=== PATIENT | female | born 1995 | race Caucasian/White ===

== ENCOUNTER 2023-03-23 09:31 | Emergency (ER) | payer OTHER, SELFPAY ==
--- NOTE | ~2023-03-23 | US_ITS ---
EXAMINATION: US ABDOMEN LIMITED CLINICAL INFORMATION: Abnormal LFTs. COMPARISON: Abdominal ultrasound 01/27/2016. TECHNIQUE: Real-time imaging of the right upper quadrant abdominal viscera. FINDINGS: PANCREAS: Obscured by overlying bowel gas. Visualized pancreatic head and body within normal limits. LIVER: Increased parenchymal echogenicity. No focal mass or intrahepatic biliary ductal dilatation. GALLBLADDER: Negative Lerma's sign. The gallbladder is physiologically distended without evidence of stones, sludge, polyps, wall thickening or pericholecystic fluid. COMMON BILE DUCT: Normal in caliber measuring 0.5 cm in diameter. RIGHT KIDNEY: No hydronephrosis. No renal calculi or focal parenchymal lesions. The kidney measures 9.6 cm in maximum dimension. FREE FLUID: None. US/US abdomen limited IMPRESSION: 1. Increased parenchymal echogenicity of the liver is nonspecific and could be seen in the setting of hepatic steatosis or hepatocellular disease. 2. Otherwise, normal examination.
[2023-03-23 09:49] VITALS: BP 121/89; PULSE 82; RESP 18; TEMP 37.1; O2SAT 98; BMI 28.6
[2023-03-23 10:17] LABS: MANUAL DIFF FLAG NO
[2023-03-23 10:21] LABS: Basophils Percent Auto 0.2 % (0-2); Eosinophils Absolute Auto 0.2 X10*3/uL (0.0-0.4); Eosinophils Percent Auto 2.2 % (0-4); Hematocrit 41.4 % (37.0-47.0); Hemoglobin 14.4 g/dl (12.0-16.0); Imm Gran Abs Auto 0.02 X10*3/uL (0.00-0.03); Imm Gran Pct Auto 0.2 % (0.0-0.4); Lymphocytes Absolute Auto 1.9 X10*3/uL (1.2-4.9); Lymphocytes Percent Auto 19.8 % (20-40); Mean Corpuscular HGB Conc 34.8 g/dl (31.0-35.0); Mean Corpuscular Hemoglobin 35.8 pg (27.0-33.0); Mean Platelet Volume 11.3 fL (9.4-12.3); Monocytes Absolute Auto 1.2 X10*3/uL (0.1-1.2); Monocytes Percent Auto 11.9 % (2-11); Neutrophils Absolute Auto 6.4 x10*3/uL (2.0-8.3); Neutrophils Percent Auto 65.7 % (45-73); Platelet Count 413 X10*3/uL (160-400); Red Blood Count 4.02 X10*6/uL (4.20-5.50); Red Cell Distribution Width 14.1 % (11.0-16.0); White Blood Count 9.7 X10*3/uL (4.8-10.8)
[2023-03-23 10:45] LABS: Alanine Aminotransferase 108 U/L (0-31); Albumin Level 3.4 g/dL (3.5-5.0); Alkaline Phosphatase 125 U/L (39-117); Anion Gap 13 (12-20); Aspartate Amino Transferase 128 U/L (5-31); Bilirubin Direct 1.2 mg/dL (0.0-0.5); Bilirubin Total 2.1 mg/dL (0.0-1.0); Blood Urea Nitrogen 8 mg/dL (9-16); Calcium 8.8 mg/dL (8.4-10.2); Carbon Dioxide 29 mmol/L (22-29); Chloride 102 mmol/L (96-108); Creatinine Clr Calc Pharmacy 109.8; Estimated Glomerular Filt Rate > 60; Glucose Random 84 mg/dL (60-115); Lipase 33 U/L (8-78); Potassium 3.6 mmol/L (3.3-5.1); Sodium 140 mmol/L (135-145); Total Protein 6.8 g/dL (6.5-8.0)
--- NOTE | 2023-03-23 11:05 | ED_ITS ---
HPI - General Adult General Chief complaint: General Medical Stated complaint: Bilateral leg/hand numbness Time Seen by Provider: 03/23/23 10:30 Source: patient Mode of arrival: ambulatory Limitations: no limitations History of Present Illness HPI narrative: 27 yo female with PMH of UC not on medications notes she doesn't drink much just a couple of times a week but drank a lot recently over the past couple of days about a week ago then vomited. She now has numbness, tingling in her legs like they are asleep and her toes are burning. This has never happened before. She smokes THC but no other street drugs. She denies diarrhea or fevers, no viral illness. It has stayed the same over a week. MD complaint: leg pain parasthesias Onset (ago): week(s) (1) Location: left, right and lower extremity Radiation: non-radiation Severity: moderate Quality: other (burning and tingling) Relieving factors: none Exacerbating factors: movement Associated symptoms: denies other symptoms Treatments prior to arrival: none Related Data Previous Rx's Medication Instructions Recorded folic acid 1 mg tablet 1 mg PO DAILY #30 tabs 03/23/23 magnesium oxide 400 mg PO DAILY #30 tabs 03/23/23 thiamine HCl (vitamin B1) 100 mg 100 mg PO DAILY #30 tabs 03/23/23 tablet Allergies Allergy/AdvReac Type Severity Reaction Status Date / Time aspirin [ASA] Allergy Unknown Verified 03/23/23 09:51 Review of Systems 2 Review of Systems: Constitutional : No Fever, No Chills, No Fatigue ENT/Mouth : No sore throat, No Rhinorrhea Eyes: No Eye Pain, No Swelling, No Redness Cardiovascular : No Chest Pain, No SOB, No Dyspnea on Exertion Respiratory : No Cough, No Sputum Gastrointestinal : No Nausea, No Vomiting, No Diarrhea, No abdominal Pain Genitourinary : No Dysuria, No Urinary Frequency, No Hematuria, Musculoskeletal : No joint pain, No Myalgias, No Joint Swelling Skin : No Skin Lesions, No rash Neuro : No Weakness, pos Numbness, No Dizziness, no Headache Psych : No Anxiety/Panic, No Depression Heme/Lymph: No Bruising, No Bleeding,No Lymphadenopathy Endocrine : No Polyuria, No Polydipsia All other systems reviewed and are negative PMFSH Past Medical History Attestation statement: The following information was validated with the patient. Medical History Ulcerative colitis Social History Social History (Updated 03/23/23 @ 11:43 by Winnie Marin DO) Alcohol intake: current Patient Tobacco Use Status: Current someday Tobacco user Substance Use Type: Marijuana Advance Directives: No Advance Directives Information Provided: No Physical Exam ED Vital Signs: Vital Signs - 24 hr 03/23/23 09:49 03/23/23 12:31 Temperature 98.7 F 97.4 F Pulse Rate 82 68 Respiratory Rate 18 Blood Pressure 121/89 131/89 Pulse Oximetry 98 100 Oxygen Delivery Method Room Air Room Air BMI result Body Mass Index 28.6 Appearance: Alert. Oriented X3. No acute distress. Eyes: Pupils equal, round and reactive to light. ENT: Pharynx normal. Neck: Normal inspection. Neck supple. CVS: Normal heart rate and rhythm. Pulses normal. Respiratory: No respiratory distress. Breath sounds normal. Abdomen: Soft and nontender. Skin: Skin warm and dry. Normal skin color. Normal skin turgor. Extremities: No lower extremity edema. No calf ttp Neuro: Oriented X 3. No motor deficit. No sensory deficit. no clonus, can feel hands on legs, babinski normal, 2+ DTR in patella and achilles bilaterally Medications Administered Discontinued Medications Generic Name Dose Route Start Last Admin Trade Name Freq PRN Reason Stop Dose Admin Thiamine HCl 200 mg/ Sodium 102 mls @ 204 mls/hr 03/23/23 11:03 03/23/23 12:21 Chloride IV 03/23/23 11:32 Infused ONCE ONE Infusion Sodium Chloride 1,000 mls @ 999 mls/hr 03/23/23 11:15 03/23/23 12:34 Ns IV 03/23/23 12:15 Infused .Q1H1M ERIKA Infusion Magnesium Sulfate 2 gm in 50 mls @ 25 mls/hr 03/23/23 11:03 03/23/23 14:02 Magnesium Sulfate/H2o IV 03/23/23 13:02 Infused ONCE ONE Infusion Medical Decision Making Medical Decision Making [facility] Narrative: 27 yo female with hx of ETOH use though based off her labs I do not think she is being very forthcoming her MCV and LFTs are high - she denies withdrawal symptoms. She now has neuropathy and burning pain, consistent tingling of the legs that has not increased or changed pulses are intact, DTRs are normal given no increase in symptoms and normal DTR - GBS unlikely I believe this is ETOH related and or lyte abnormality. At this time labs, US of liver, IV magnesium and thiamine ordered Differential Diagnosis Differential Diagnoses: The differential diagnosis associated with the presentation includes lyte abnormality, ETOH neuropathy Admission/Observation Consideration of admission/observation: Escalation of care including admission/observation considered can ambulate is moving legs freely in bed will DC on vitamins and follow up with PCP Lab Data MDM Lab Attestation statement: I reviewed the patient's lab results. 03/23/23 10:11 03/23/23 10:11 Labs: Lab Results 03/23/23 03/23/23 Range/Units 10:11 13:42 WBC 9.7 (4.8-10.8) X10*3/uL RBC 4.02 L (4.20-5.50) X10*6/uL Hgb 14.4 (12.0-16.0) g/dl Hct 41.4 (37.0-47.0) % MCV 103.0 H (80.0-98.0) fL MCH 35.8 H (27.0-33.0) pg MCHC 34.8 (31.0-35.0) g/dl RDW 14.1 (11.0-16.0) % Plt Count 413 H (160-400) X10*3/uL MPV 11.3 (9.4-12.3) fL Immature Gran % (Auto) 0.2 (0.0-0.4) % Neut % (Auto) 65.7 (45-73) % Lymph % (Auto) 19.8 L (20-40) % [place] % (Auto) 11.9 H (2-11) % Eos % (Auto) 2.2 (0-4) % Baso % (Auto) 0.2 (0-2) % Lymph # (Auto) 1.9 (1.2-4.9) X10*3/uL [place] # (Auto) 1.2 (0.1-1.2) X10*3/uL Eos # (Auto) 0.2 (0.0-0.4) X10*3/uL Baso # (Auto) 0.0 (0.0-0.2) X10*3/uL Abs Immat Gran (auto) 0.02 (0.00-0.03) X10*3/uL Absolute Neuts (auto) 6.4 (2.0-8.3) x10*3/uL Absolute Nucleated RBC 0.000 (0.0-0.012) X10*3/uL Nucleated RBC % (auto) 0.0 (0.0-0.2) /100WBC Sodium 140 (135-145) mmol/L Potassium 3.6 (3.3-5.1) mmol/L Chloride 102 (96-108) mmol/L Carbon Dioxide 29 (22-29) mmol/L Anion Gap 13 (12-20) BUN 8 L (9-16) mg/dL Creatinine 0.66 (0.5-1.4) mg/dL Estim Creat Clear Calc 109.8 Estimated GFR > 60 Random Glucose 84 (60-115) mg/dL Calcium 8.8 (8.4-10.2) mg/dL Magnesium 1.5 L (1.6-2.6) mg/dL Total Bilirubin 2.1 H (0.0-1.0) mg/dL Direct Bilirubin 1.2 H (0.0-0.5) mg/dL AST 128 H (5-31) U/L ALT 108 H (0-31) U/L Alkaline Phosphatase 125 H (39-117) U/L Total Protein 6.8 (6.5-8.0) g/dL Albumin 3.4 L (3.5-5.0) g/dL Lipase 33 (8-78) U/L Vitamin B12 952 H (200-900) pg/mL Folate < 2.2 L (> or = 4.0) ng/mL Ethyl Alcohol < 10 mg/dL Independent Interpretation I performed an independent interpretation of an: Ultrasound (no GB inflammation) Radiology Impression Discussion of test interpretation with radiology: I have reviewed the radiologist's reading. Prescription Management I considered prescription management with: Other Critical Care Time Critical Care Time Critical Care Time: Yes Total Critical Care Time: 40 Attestation: repletion of IV magnesium I attest to this time spent taking care of the patient Discharge Plan Discharge Clinical Impression: Alcohol abuse, Elevated liver enzymes, Hypomagnesemia, Neuropathy Patient Disposition: Home, Self-Care Instructions: Peripheral Neuropathy (ED), Hypomagnesemia (ED), Alcohol Use Disorder (ED) Additional Instructions: return for worsening symptoms, weakness, difficulty breathing or urinating or any other concerns. recheck liver enzymes with your doctor in 1 week. stop drinking. please take the vitamins prescribed to you Prescriptions: New folic acid 1 mg tablet 1 mg PO DAILY Qty: 30 1RF magnesium oxide 400 mg magnesium tablet 400 mg PO DAILY Qty: 30 1RF thiamine HCl (vitamin B1) 100 mg tablet 100 mg PO DAILY Qty: 30 1RF Stand Alone Forms: Work/School Release
[2023-03-23] MEDS: 0.9 % Sodium Chloride 1,000 ML 999 ML IV (11:26)
[2023-03-23] MEDS: Thiamine HCL 200 MG in 0.9 % Sodium Chloride 100 ML 204 MG IV (11:44)
[2023-03-23 11:56] LABS: Ethanol < 10 mg/dL; Magnesium 1.5 mg/dL (1.6-2.6)
--- NOTE | 2023-03-23 11:58 | PC.NURSE ---
20g iv inserted L upper arm. iv fluid and Thiamine started as documented. resting quietly, no apparent distress. will continue to observe.
[2023-03-23] MEDS: Magnesium Sulfate/H2O 2 GM/50 ML PIGGYBACK IV (12:21)
[2023-03-23 12:31] VITALS: BP 131/89; PULSE 68; TEMP 36.3; O2SAT 100
[2023-03-23 15:01] LABS: Folate < 2.2 ng/mL (> or = 4.0); Vitamin B12 952 pg/mL (200-900)
[2023-03-23] MEDS: Folic Acid 1 MG TABLET PO (15:29)
== END 2023-03-23 15:32 | disposition home or self-care (01) ==
PROVIDERS: Emergency Provider Emergency Medicine
DX: G62.9 Polyneuropathy, unspecified (principal); R20.0 Anesthesia of skin; F10.10 Alcohol abuse, uncomplicated; Y90.0 Blood alcohol level of less than 20 mg/100 ml; F12.10 Cannabis abuse, uncomplicated; R79.89 Other specified abnormal findings of blood chemistry; E83.42 Hypomagnesemia; M79.605 Pain in left leg; M79.604 Pain in right leg; Z79.899 Other long term (current) drug therapy
CPT/HCPCS: 36415; 76705; 80048; 80076; 80307; 82607; 82746; 83690; 83735; 85025; 96361; 96365; 96366; 96375; 99284; J3411; J3475

== ENCOUNTER 2023-03-25 13:30 | Outpatient (AMB) | payer OTHER, SELFPAY ==
[2023-03-25 13:36] VITALS: BP 122/78; PULSE 92; O2SAT 98
--- NOTE | 2023-03-25 13:36 | A.OFFVISCC_ITS ---
Intake Vital Signs 03/25/23 13:36 BP 122/78 Blood Pressure Location Lt radial Position Sitting Pulse 92 Pulse Source Pulse Oximeter Pulse Oximetry (%) 98 Oxygen Delivery Method Room Air Intake Visit Reasons: MAT Intake Intake Note: the patient is her efor a mat intake Allergies aspirin [ASA] Allergy (Verified 03/23/23 09:51) Unknown HPI MAT Intake HPI Details Patient presents for intake and evaluation of alcohol use Drinking daily 1-2 sleeves of vodka for about the past year Prior to that was binge drinking --started at age 17 Experiences withdrawal sx of anxiety, cloudy mind, tremors no history of seizures Episodes of vomiting Last drink 2 days ago Recently in our ED--neuropathy Denies any other substance use Denies any history of treatment Family history of substance use--mother, sister and several family members Medical History: -no PCP at this time -reports ulcerative colitis -engaged with GI via [facility] --colonoscopy coming up soon Social History: -lives with grandparents -not employed at this time--arrested las t week and lost her job at [id number] Goals: -stop drinking -focus on my life No relationship son 3 years old No medications at this time [facility] Medical History Ulcerative colitis Social History (Updated 03/23/23 @ 11:43 by Winnie Marin DO) Alcohol intake: current Patient Tobacco Use Status: Current someday Tobacco user Substance Use Type: Marijuana Review of Systems Const Reports as per HPI, Reports difficulty sleeping, Reports malaise and Reports poor appetite Physical Exam Vital Signs: Last Vital Signs Pulse 92 03/25/23 13:36 BP 122/78 03/25/23 13:36 Pulse Ox 98 03/25/23 13:36 Oxygen Delivery Method Room Air 03/25/23 13:36 Const General: cooperative, no acute distress and well groomed Assessment & Plan Assessment & Plan (1) Alcohol use disorder, severe, dependence: Code(s): F10.20 - Alcohol dependence, uncomplicated Plan: * discussed concern for withdrawal sx worsening given how long she has been drinking --agreeable to diazepam taper. * Reviewed dosing, goals and risks. Patient lives with grandparents and they are aware of plan * RN to check in daily * follow up in office Friday Medications: New diazepam 10 mg orally; Day one: 1 tab every 8 hours Day two: 1 tab every 8 hours Day three: 1 tab every 12 hours Day four: 1 tab at bedtime 10 tabs 0RF Coding Level of Care Code New Pt Level 4 (36216) Diagnoses Alcohol use disorder, severe, dependence F10.20
== END 2023-03-25 14:15 | disposition home or self-care (01) ==
PROVIDERS: Visit Provider Nurse Practitioner Psychiatric/Mental Health
DX: F10.20 Alcohol dependence, uncomplicated (principal)
CPT/HCPCS: 99204

== ENCOUNTER → 2023-03-25 13:30 | Outpatient (BNVA) | payer OTHER, SELFPAY | PROVIDERS: Visit Provider Nurse Practitioner Psychiatric/Mental Health | DX: F10.20 Alcohol dependence, uncomplicated (principal) | CPT/HCPCS: 99202 ==

== ENCOUNTER 2023-04-02 09:15 | Outpatient (AMB) | payer OTHER, SELFPAY ==
--- NOTE | 2023-04-02 09:16 | A.OFFVISCC_ITS ---
Intake Vital Signs 04/02/23 09:25 BP 110/70 Blood Pressure Location Lt radial Position Sitting Pulse 91 Pulse Source Pulse Oximeter Pulse Oximetry (%) 98 Oxygen Delivery Method Room Air Intake Visit Reasons: mat visit Intake Note: The patient presents for a mat visit Hospital Pharmacy Director Required: No Allergies aspirin [ASA] Allergy (Verified 04/02/23 09:26) Unknown HPI mat visit HPI Details Pt presents for AUD treatment and follow up She reports the diazepam taper was effective, and that she has not had an alcoholic beverage in 12 days She is experiencing burning and tingling to bilateral feet that she noticed began after she stopped alcohol use She is endorsing difficulty sleeping, and walking due to the pain She is reporting an increase in anxiety and irritability since she stopped drinking as well She is expressing interest in starting the vivitrol injection as she feels if she wants to drink she will not take the pills [facility] Medical History Ulcerative colitis Social History (Updated 03/23/23 @ 11:43 by Winnie Marin DO) Alcohol intake: current Patient Tobacco Use Status: Current someday Tobacco user Substance Use Type: Marijuana Review of Systems Const Reports as per HPI Musc Reports as per HPI and Reports tingling Neuro Reports burning sensations (bilateral feet) and Reports tingling Psych Reports anxiety and Reports irritability Physical Exam Vital Signs: Last Vital Signs Pulse 91 04/02/23 09:25 BP 110/70 04/02/23 09:25 Pulse Ox 98 04/02/23 09:25 Oxygen Delivery Method Room Air 04/02/23 09:25 Const General: cooperative and no acute distress Resp Effort & Inspection: normal respiratory effort Psych Appearance: grossly normal Mental Status: mental status grossly normal Speech and movement: Normal speech and movement present Affect: normal affect Attitude: cooperative Assessment & Plan Assessment & Plan (1) Alcohol use disorder, severe, dependence: Code(s): F10.20 - Alcohol dependence, uncomplicated Plan: -Increase gabapentin from 100mg bid to 300mg bid -Hydroxyzine for anxiety, med education provided -Naltrexone and vivitrol ordered, med education provided -Follow up 1 week Medications: New naltrexone microspheres ER (Vivitrol) 380 mg IM Q4W 1 ea 5RF gabapentin 300 mg PO BID 14 caps 0RF hydroxyzine HCl 25 mg PO BID PRN 14 tabs 0RF itching naltrexone Take 1/2 tab x 3 days, progress to full tab if tolerated well 50 mg PO DAILY 30 tabs 0RF Discontinued gabapentin Discontinued Reason: Patient Completed Course 100 mg PO BID 10 caps 0RF Coding Level of Care Code Est Pt Level 3 (09193) Diagnoses Alcohol use disorder, severe, dependence F10.20
[2023-04-02 09:25] VITALS: BP 110/70; PULSE 91; O2SAT 98
== END 2023-04-02 10:28 | disposition home or self-care (01) ==
PROVIDERS: Visit Provider Nurse Practitioner Family
DX: F10.20 Alcohol dependence, uncomplicated (principal)
CPT/HCPCS: 99213

== ENCOUNTER → 2023-04-02 09:15 | Outpatient (BNVA) | payer OTHER, SELFPAY | PROVIDERS: Visit Provider Nurse Practitioner Family | DX: F10.20 Alcohol dependence, uncomplicated (principal) | CPT/HCPCS: 99212 ==

== ENCOUNTER 2023-04-09 09:22 | Outpatient (REF) | payer OTHER, SELFPAY ==
[2023-04-09 10:15] LABS: MANUAL DIFF FLAG NO
[2023-04-09 10:32] LABS: Basophils Percent Auto 0.2 % (0-2); Eosinophils Absolute Auto 0.4 X10*3/uL (0.0-0.4); Eosinophils Percent Auto 2.7 % (0-4); Hematocrit 44.1 % (37.0-47.0); Hemoglobin 14.6 g/dl (12.0-16.0); Imm Gran Abs Auto 0.36 X10*3/uL (0.00-0.03); Imm Gran Pct Auto 2.3 % (0.0-0.4); Lymphocytes Absolute Auto 2.9 X10*3/uL (1.2-4.9); Lymphocytes Percent Auto 18.4 % (20-40); Mean Corpuscular HGB Conc 33.1 g/dl (31.0-35.0); Mean Corpuscular Hemoglobin 34.2 pg (27.0-33.0); Mean Corpuscular Volume 103.3 fL (80.0-98.0); Mean Platelet Volume 11.3 fL (9.4-12.3); Monocytes Absolute Auto 1.2 X10*3/uL (0.1-1.2); Monocytes Percent Auto 7.5 % (2-11); Neutrophils Absolute Auto 10.9 x10*3/uL (2.0-8.3); Neutrophils Percent Auto 68.9 % (45-73); Platelet Count 510 X10*3/uL (160-400); Red Blood Count 4.27 X10*6/uL (4.20-5.50); Red Cell Distribution Width 13.2 % (11.0-16.0); White Blood Count 15.8 X10*3/uL (4.8-10.8)
[2023-04-09 11:18] LABS: Alanine Aminotransferase 46 U/L (0-31); Alkaline Phosphatase 103 U/L (39-117); Anion Gap 10 (12-20); Aspartate Amino Transferase 35 U/L (5-31); Bilirubin Total 0.4 mg/dL (0.0-1.0); Blood Urea Nitrogen 11 mg/dL (9-16); Calcium 9.7 mg/dL (8.4-10.2); Carbon Dioxide 28 mmol/L (22-29); Chloride 108 mmol/L (96-108); Estimated Glomerular Filt Rate > 60; Glucose Random 82 mg/dL (60-115); Sodium 142 mmol/L (135-145); Total Protein 7.4 g/dL (6.5-8.0)
[2023-04-09 11:34] LABS: TSH reflex Free T4 1.35 uIU/mL (0.32-4.0)
[2023-04-09 11:39] LABS: Folate 8.4 ng/mL (> or = 4.0); Vitamin B12 486 pg/mL (200-900)
== END 2023-04-09 09:23 | disposition home or self-care (01) ==
LOC: HO.LAB 09:22
PROVIDERS: Visit Provider Nurse Practitioner Family
DX: F10.20 Alcohol dependence, uncomplicated (principal); G62.1 Alcoholic polyneuropathy; Z51.81 Encounter for therapeutic drug level monitoring; Z79.899 Other long term (current) drug therapy
CPT/HCPCS: 36415; 80053; 82607; 82746; 84443; 85025; 99212

== ENCOUNTER 2023-04-09 09:22 | Outpatient (AMB) | payer OTHER, SELFPAY ==
--- NOTE | 2023-04-09 09:25 | A.OFFVISCC_ITS ---
Intake Vital Signs 04/09/23 09:34 BP 126/76 Blood Pressure Location Lt radial Position Sitting Pulse 90 Pulse Source Pulse Oximeter Pulse Oximetry (%) 98 Oxygen Delivery Method Room Air Intake Visit Reasons: mat visit Intake Note: The patient presents for a mat visit Enlisted Advisor Required: No Allergies aspirin [ASA] Allergy (Verified 04/09/23 09:35) Unknown Do you need a note to return to daycare/school/sports/work: No HPI mat visit HPI Details Patient presents for MAT visit for AUD She reports having cravings daily, but tells herself that she does not want to go through the process of quitting again and that is what gets her through the craving T/w reminded her that these cravings are temporary and normal for early recovery. She continues to experience burning, tingling, and shocks to bilateral feet. She reports the gabapentin has been somewhat helpful She is experiencing difficulty sleeping due to the pain She has been trying various creams for pain relief, foot soaks, and 400mg ibuprofen daily. T/w advised her that for short term her ibuprofen can be taken 600mg qid or 800mg tid at maximum/day, and that 400mg / day is likely underdosing for the pain [facility] Medical History Ulcerative colitis Social History (Updated 03/23/23 @ 11:43 by Winnie Marin DO) Alcohol intake: current Patient Tobacco Use Status: Current someday Tobacco user Substance Use Type: Marijuana Review of Systems Const Reports as per HPI and Denies frequent falls Musc Denies numbness and Reports tingling Neuro Reports burning sensations, Denies frequent falls, Denies lack of coordination, Denies numbness, Denies restless legs, Reports tingling and Denies paresthesias Physical Exam Vital Signs: Last Vital Signs Pulse 90 04/09/23 09:34 BP 126/76 04/09/23 09:34 Pulse Ox 98 04/09/23 09:34 Oxygen Delivery Method Room Air 04/09/23 09:34 Const General: cooperative Resp Effort & Inspection: normal respiratory effort Skin General skin exam: no rashes or lesions noted Psych Appearance: grossly normal Mental Status: mental status grossly normal Speech and movement: Normal speech and movement present Affect: normal affect Attitude: cooperative Assessment & Plan Assessment & Plan (1) Alcohol use disorder, severe, dependence: Code(s): F10.20 - Alcohol dependence, uncomplicated Plan: -Started naltrexone 1 day ago -Has been abstinent x 20 days -Relapse prevention discussed -Follow up 1 week (2) Alcoholic peripheral neuropathy: Code(s): G62.1 - Alcoholic polyneuropathy Plan: -Pain continues to be a challenge for her- not meeting treatment goals -Gabapentin increased 300mg tid -Amitriptyline 25mg added for nighttime to address insomnia and neuropathy -Repaeat labwork, CBC, TSH, CMP, B12 & Folate, and TSH -Referral placed to pain management Orders: Orders Complete Blood Count Auto Diff Today F10.20 - Alcohol dependence, uncomplicated Vitamin B12 and Folate Today F10.20 - Alcohol dependence, uncomplicated Comprehensive Met. Panel Today F10.20 - Alcohol dependence, uncomplicated TSH reflex Free T4 Today F10.20 - Alcohol dependence, uncomplicated Vitamin B1 Today F10.20 - Alcohol dependence, uncomplicated Referrals Pain Management Referral G62.1 - Alcoholic polyneuropathy Medications: New gabapentin 300 mg PO TID 42 caps 0RF amitriptyline 25 mg PO BEDTIME 14 tabs 0RF Discontinued gabapentin Discontinued Reason: Patient Completed Course 300 mg PO BID 14 caps 0RF Coding Level of Care Code Est Pt Level 4 (91943) Diagnoses Alcohol use disorder, severe, dependence F10.20 Alcoholic peripheral neuropathy G62.1 Time Spent (min) 40 Comment Time spent with patient, reviewing chart, and documenting
[2023-04-09 09:34] VITALS: BP 126/76; PULSE 90; O2SAT 98
== END 2023-04-09 10:24 | disposition home or self-care (01) ==
PROVIDERS: Visit Provider Nurse Practitioner Family
DX: F10.20 Alcohol dependence, uncomplicated (principal); G62.1 Alcoholic polyneuropathy
CPT/HCPCS: 99214

== ENCOUNTER 2023-04-15 12:58 | Outpatient (AMB) | payer OTHER, SELFPAY ==
--- NOTE | 2023-04-15 12:59 | A.OFFVISCC_ITS ---
Intake Vital Signs 04/15/23 13:06 Height 5 ft 0.4 in Weight 144 lb 6 oz BMI 27.8 BP 118/82 Blood Pressure Location Lt radial Position Sitting Pulse 96 Pulse Source Pulse Oximeter Pulse Oximetry (%) 97 Oxygen Delivery Method Room Air Intake Visit Reasons: mat visit Intake Note: the patient presents for a mat visit Blade Grinder Required: No Allergies aspirin [ASA] Allergy (Verified 04/15/23 13:07) Unknown Do you need a note to return to daycare/school/sports/work: No HPI mat visit HPI Details Pt presents for MAT appointment Today is her first vivitrol injection She continues to abstain from alcohol She reports she is still having a burning sensation to bilateral feet, she feels the gabapentin has been minimally helpful and did not feel as though the amitriptyline was helpful [facility] Medical History Ulcerative colitis Social History (Updated 03/23/23 @ 11:43 by Winnie Marin DO) Alcohol intake: current Patient Tobacco Use Status: Current someday Tobacco user Substance Use Type: Marijuana Review of Systems Const Reports as per HPI Neuro Reports burning sensations Physical Exam Vital Signs: Last Vital Signs Pulse 96 04/15/23 13:06 BP 118/82 04/15/23 13:06 Pulse Ox 97 04/15/23 13:06 Oxygen Delivery Method Room Air 04/15/23 13:06 BMI result Body Mass Index 27.8 Office Meds Vivitrol 380 mg intramuscular suspension,extended release Performing Provider: Alejandra Richards NP Performing Location: [facility] Administered by: Kelly Powell RN on 04/15/23 13:48 Dose Route Admin Location Dispensed Lot Number Expiration Date [facility] [place] Billing Typist 380 mg IM RG 380 mg [id number] 06/23/25 [id number] [employer] Comments: Patient tolerated injection well with no stated or noted side effects, agrees to call [facility] for any comments, questions or concerns. Assessment & Plan Assessment & Plan (1) Alcohol use disorder, severe, dependence: Code(s): F10.20 - Alcohol dependence, uncomplicated Plan: -Tolerated injection -Provided her with med education -Follow up 1 week (2) Alcoholic peripheral neuropathy: Code(s): G62.1 - Alcoholic polyneuropathy Plan: -Increased amitriptyline from 25mg to 50mg nightly -Pain management referral has been placed- patient is waiting to here from them Orders: Orders AMB Naltrexone Injection Patient Supplied (NC) Today F10.20 - Alcohol dep endence, uncomplicated Medications: Changed From amitriptyline 25 mg PO BEDTIME 14 tabs 0RF To amitriptyline 50 mg (2 x 25 mg) PO BEDTIME 14 tabs 0RF Coding Level of Care Code Est Pt Level 3 (81071) Diagnoses Alcohol use disorder, severe, dependence F10.20 Alcoholic peripheral neuropathy G62.1
[2023-04-15 13:06] VITALS: BP 118/82; PULSE 96; O2SAT 97; BMI 27.8
== END 2023-04-15 14:57 | disposition home or self-care (01) ==
PROVIDERS: Visit Provider Nurse Practitioner Family
DX: F10.20 Alcohol dependence, uncomplicated (principal); G62.1 Alcoholic polyneuropathy
CPT/HCPCS: 99213

== ENCOUNTER → 2023-04-15 12:58 | Outpatient (BNVA) | payer OTHER, SELFPAY | PROVIDERS: Visit Provider Nurse Practitioner Family | DX: F10.20 Alcohol dependence, uncomplicated (principal); G62.1 Alcoholic polyneuropathy; Z79.899 Other long term (current) drug therapy | CPT/HCPCS: 96372; 99212; J2315 ==

== ENCOUNTER 2023-04-18 08:30 | Inpatient (IN) | payer OTHER, SELFPAY ==
[2023-04-18] VITALS (9 sets, daily range): BP systolic 119–135; BP diastolic 74–96; PULSE 102–150; RESP 15–21; TEMP 36.2–36.7; O2SAT 95–100; BMI 27.9
--- NOTE | 2023-04-18 | ECG_ITS ---
Test Reason : tachycardia Blood Pressure : / mmHG Vent. Rate : 129 BPM Atrial Rate : 129 BPM P-R Int : 066 ms QRS Dur : 074 ms QT Int : 396 ms P-R-T Axes : -21 040 076 degrees QTc Int : 580 ms Sinus tachycardia with short W[place] T wave abnormality, consider inferior ischemia T wave abnormality, consider anterolateral ischemia Abnormal ECG When compared with ECG of 18-APR-2023 08:43, W[place] interval has decreased T wave inversion now evident in Inferior leads Referred By: Alex Adam Electronically Signed By:NOE AC MD
--- NOTE | ~2023-04-18 | XR_ITS ---
EXAMINATION: XR CHEST CLINICAL INFORMATION: Tachycardia. Dyspnea. COMPARISON: 01/27/2016 TECHNIQUE: 2 views of the chest were obtained. FINDINGS: The lungs are well expanded. No focal consolidation. No pleural effusion. Cardiac silhouette is within normal limits. XR/XR chest 2V IMPRESSION: No acute abnormality.
--- NOTE | 2023-04-18 08:40 | ECG_ITS ---
Test Reason : CP Blood Pressure : / mmHG Vent. Rate : 142 BPM Atrial Rate : 142 BPM P-R Int : 128 ms QRS Dur : 074 ms QT Int : 352 ms P-R-T Axes : 067 062 037 degrees QTc Int : 541 ms Sinus tachycardia T wave abnormality, consider inferior ischemia T wave abnormality, consider anterolateral ischemia Abnormal ECG Referred By: Generic ED Physician Electronically Signed By:NOE AC MD
--- NOTE | 2023-04-18 08:55 | MHC.EDTECH ---
EKG was done on this patient dont know why its not crossing over but its been done.
--- NOTE | 2023-04-18 09:17 | ED.GENADULT ---
HPI - General Adult General Chief complaint: General Medical Stated complaint: Reaction to Shot 04/17/23 Time Seen by Provider: 04/18/23 09:17 History of Present Illness HPI narrative: The patient is a 27-year-old female with a history of alcohol use disorder. She has not had any alcohol for about 1 month. She is trying to stay off alcohol. Three days ago on Friday she received an injection of Vivitrol. This was the first time she has received this medication. The patient says that about 45 minutes after receiving the Vivitrol injection she started to feel unwell. She felt tired and anxious. Over the last 3 days these symptoms have worsened and include a sense of heart racing, shortness of breath, nausea, vomiting, and insomnia. No significant cough or sputum. No urinary symptoms. Related Data Home Medications Medication Instructions Recorded Confirmed acetaminophen 500 mg tablet 1,000 mg PO Q8H PRN Migraine 04/18/23 04/18/23 Headache hydroxyzine HCl 25 mg tablet 25 mg PO BID PRN itching/anxiety 04/18/23 04/18/23 Previous Rx's Medication Instructions Recorded folic acid 1 mg tablet 1 mg PO DAILY #30 tabs 03/23/23 magnesium oxide 400 mg PO DAILY #30 tabs 03/23/23 thiamine HCl (vitamin B1) 100 mg 100 mg PO DAILY #30 tabs 03/23/23 tablet naltrexone microspheres 380 mg 380 mg IM Q4W #1 ea 04/02/23 intramuscular suspension,extended release (Vivitrol) amitriptyline 25 mg tablet 50 mg (2 x 25 mg) PO BEDTIME #14 04/15/23 tabs Allergies Allergy/AdvReac Type Severity Reaction Status Date / Time aspirin [ASA] Allergy Unknown Verified 04/15/23 13:07 Review of Systems Review of Systems: Yes all other systems are reviewed and are negative PMFSH Past Medical History Medical History Ulcerative colitis Social History Social History Alcohol intake: current Patient Tobacco Use Status: Current someday Tobacco user Substance Use Type: Marijuana Advance Directives: No Advance Directives Information Provided: No Physical Exam ED Vital Signs: Vital Signs - 24 hr 04/18/23 08:35 04/18/23 11:28 04/18/23 13:14 Temperature 98 F 97.5 F 97.7 F Pulse Rate 150 H 129 H 126 H Respiratory Rate 19 20 20 Blood Pressure 126/96 H 134/95 H 130/89 Pulse Oximetry 98 100 98 Oxygen Delivery Method Room Air Room Air 04/18/23 14:45 Temperature 98.1 F Pulse Rate 136 H Respiratory Rate 18 Blood Pressure 127/84 Pulse Oximetry 98 Oxygen Delivery Method Room Air BMI result Body Mass Index 27.9 Const Other: The patient is a 27-year-old who looks somewhat older than her age. She was awake and alert. She seemed to have an anxious affect and looked mildly restless. HENMT Other: Face is symmetrical. Mucous membranes slightly dry. Eyes Other: Pupils round equal, extraocular movements intact, conjunctivae clear Neck Other: No lymphadenopathy. No neck swelling. No JVD. Resp Other: Lungs are clear bilaterally. Cardio Rate: tachycardic Rhythm: regular rhythm Heart sounds: S1 normal heart sound present and S2 normal heart sound present GI Other: Abdomen is soft and nontender Skin Other: Skin is pale and dry Neuro Other: The patient is awake and alert. She has an anxious demeanor. Cranial nerves are grossly intact. She moves her extremities normally. She does not have any obvious focal neurological deficit. Extrem Other: No peripheral edema. Medications Administered Generic Name Dose Route Start Last Admin Trade Name Freq PRN Reason Stop Dose Admin Dextrose/Sodium Chloride 1,000 mls @ 500 mls/hr 04/18/23 15:22 04/18/23 15:52 D5ns IVCONT 04/18/23 17:21 500 mls/hr .Q2H ONE Administration Discontinued Medications Generic Name Dose Route Start Last Admin Trade Name Freq PRN Reason Stop Dose Admin Al Hydroxide/Mg Hydroxide 60 ml 04/18/23 14:09 04/18/23 16:40 Magnesium Hydrox/Alum Hydrox 30 Ml Oral.Susp PO 04/18/23 14:10 60 ml ONCE ONE Administration Diazepam 5 mg 04/18/23 11:23 04/18/23 11:48 Diazepam 10 Mg/2 Ml Cartridge IVPUSH 04/18/23 11:24 5 mg STAT STA Administration Diazepam 10 mg 04/18/23 12:47 04/18/23 12:57 Diazepam 10 Mg/2 Ml Cartridge IM 04/18/23 12:48 10 mg STAT STA Administration Sodium Chloride 1,000 mls @ 999 mls/hr 04/18/23 09:30 04/18/23 15:02 Ns IV 04/18/23 10:30 Infused .Q1H1M ERIKA Infusion Sodium Chloride 1,000 mls @ 999 mls/hr 04/18/23 10:45 04/18/23 15:48 Ns IV 04/18/23 11:45 Not Given .Q1H1M ERIKA Promethazine HCl 12.5 mg/ 50.5 mls @ 202 mls/hr 04/18/23 10:45 04/18/23 15:02 Sodium Chloride IV 04/18/23 10:46 Infused ONCE ONE Infusion Medical Decision Making Medical Decision Making [facility] Narrative: The patient is a 27-year-old female with a history of alcoholism who states that she stopped drinking a few weeks ago. She has been seen a few times at [facility] and 3 days ago received 380 mg IM injection of naltrexone. The patient presents today with significant tachycardia a general sense of feeling unwell. She also reports nausea and vomiting and little oral intake over the last few days. She is tachycardic with a sinus tachycardia in the 140s. She has not hypotensive. She has not febrile. Her medical workup was significant for an anion gap acidosis. Her basic metabolic panel showed a bicarb of 11 with an anion gap of 30. She denies any alcohol use. She denies any other drug ingestions. Based on her tachycardia and her history of alcohol abuse and with her anion gap acidosis I believe that she seems to be behaving in a manner similar to a person with alcoholic ketoacidosis. For white blood count is very elevated but her CRP and procalcitonin are unremarkable. Her D-dimer is undetectable. Her urinalysis shows white cells but she has no urinary symptoms. There were also epithelial cells in her urinalysis. I do not think the patient is septic. I think she is dehydrated and in a starvation type state. She has a lot of ketones in her urine. The patient was given IV fluids. Her 1st IV was lost and it was difficult to establish a 2nd IV. She was also given diazepam for her anxiety. Ultimately after beta hydroxybutyrate came back positive I ordered D5 normal saline as her IV fluid. The patient has remained tachycardic. She has what I think is probably a relatively high blood pressure for her. She is quite small. Her diastolic blood pressures have been over 90. Ultimately I have also ordered a dose of phenobarbital as her presentation seems so suggestive of an alcohol cessation syndrome. The patient will be admitted to the hospitalist service for further care. Lab Data 04/18/23 09:16 04/18/23 13:39 Labs: Lab Results 04/18/23 04/18/23 04/18/23 Range/Units 09:16 09:52 09:54 WBC 28.1 H (4.8-10.8) X10*3/uL RBC 5.21 D (4.20-5.50) X10*6/uL Hgb 17.8 H D (12.0-16.0) g/dl Hct 52.2 H (37.0-47.0) % MCV 100.2 H (80.0-98.0) fL MCH 34.2 H (27.0-33.0) pg MCHC 34.1 (31.0-35.0) g/dl RDW 12.5 (11.0-16.0) % Plt Count 508 H (160-400) X10*3/uL MPV 11.6 (9.4-12.3) fL Immature Gran % (Auto) 1.6 H (0.0-0.4) % Neut % (Auto) 87.2 H (45-73) % Lymph % (Auto) 5.7 L (20-40) % [place] % (Auto) 5.1 (2-11) % Eos % (Auto) 0.2 (0-4) % Baso % (Auto) 0.2 (0-2) % Lymph # (Auto) 1.6 (1.2-4.9) X10*3/uL [place] # (Auto) 1.4 H (0.1-1.2) X10*3/uL Eos # (Auto) 0.1 (0.0-0.4) X10*3/uL Baso # (Auto) 0.1 (0.0-0.2) X10*3/uL Abs Immat Gran (auto) 0.44 H (0.00-0.03) X10*3/uL Absolute Neuts (auto) 24.5 H (2.0-8.3) x10*3/uL Absolute Nucleated RBC 0.000 (0.0-0.012) X10*3/uL Nucleated RBC % (auto) 0.0 (0.0-0.2) /100WBC Smear Tech's Comments VERIFIED D-Dimer High Sensitivty < 150 NG/ML VBG pH 7.34 (7.32-7.43) VBG pCO2 19 mmHg VBG pO2 45 mmHg VBG HCO3 10 L (22-26) mmol/L VBG O2 Saturation 79.0 % VBG Base Excess -11.9 mmol/L Sodium 139 (135-145) mmol/L Potassium 4.6 (3.3-5.1) mmol/L Chloride 103 (96-108) mmol/L Carbon Dioxide 11 L (22-29) mmol/L Anion Gap 30 H (12-20) BUN 10 (9-16) mg/dL Creatinine 0.83 (0.5-1.4) mg/dL Estim Creat Clear Calc 86.3 Estimated GFR > 60 Random Glucose 77 (60-115) mg/dL Osmolality (281-305) mosm/kg Calcium 11.2 H D (8.4-10.2) mg/dL Magnesium 2.0 (1.6-2.6) mg/dL Total Bilirubin 0.9 (0.0-1.0) mg/dL AST 24 (5-31) U/L ALT 26 (0-31) U/L Alkaline Phosphatase 125 H (39-117) U/L Total Creatine Kinase 31 (26-140) U/L Troponin I High Sens < 2.7 (<3.5-17.0) ng/L C-Reactive Protein 1.14 H (< or = 0.50) mg/dL B-Natriuretic Peptide < 10 (<100) pg/mL Total Protein 9.2 H (6.5-8.0) g/dL Albumin 5.0 (3.5-5.0) g/dL Lipase 25 (8-78) U/L Beta-Hydroxybutyrate (0.02-0.27) mmol/L Procalcitonin ng/mL Beta HCG, Quant < 2 mIU/mL Urine Color Urine Appearance Urine pH (5.0-9.0) Ur Specific [place] (1.005-1.025) Urine Protein (Neg-Trace) mg/dL Urine Glucose (UA) (Negative) mg/dL Urine Ketones (Negative) mg/dL Urine Blood (Negative) Urine Nitrite (Negative) Ur Leukocyte Esterase (Negative) Urine RBC (0-2) /HPF Urine WBC (0-5) /HPF Ur Squamous Epith Cells (0-2) /HPF Urine Bacteria (None Seen) Hyaline Casts (0-2) /LPF Salicylates (15-30) mg/dL Urine Opiates Screen (Not Detect) Urine Fentanyl Screen (Not Detect) Ur Barbiturates Screen (Not Detect) Ur Phencyclidine Scrn (Not Detect) Ur Amphetamines Screen (Not Detect) U Benzodiazepines Scrn (Not Detect) Urine Cocaine Screen (Not Detect) U Marijuana (THC) Screen (Not Detect) Ethyl Alcohol < 10 mg/dL Influenza Type A (PCR) (Negative) Influenza Type B (PCR) (Negative) RSV RNA Qual (PCR) (Negative) SARS-CoV-2 RNA (RT-PCR) (Negative) 04/18/23 04/18/23 04/18/23 Range/Units 09:55 13:39 14:54 WBC (4.8-10.8) X10*3/uL RBC (4.20-5.50) X10*6/uL Hgb (12.0-16.0) g/dl Hct (37.0-47.0) % MCV (80.0-98.0) fL MCH (27.0-33.0) pg MCHC (31.0-35.0) g/dl RDW (11.0-16.0) % Plt Count (160-400) X10*3/uL MPV (9.4-12.3) fL Immature Gran % (Auto) (0.0-0.4) % Neut % (Auto) (45-73) % Lymph % (Auto) (20-40) % [place] % (Auto) (2-11) % Eos % (Auto) (0-4) % Baso % (Auto) (0-2) % Lymph # (Auto) (1.2-4.9) X10*3/uL [place] # (Auto) (0.1-1.2) X10*3/uL Eos # (Auto) (0.0-0.4) X10*3/uL Baso # (Auto) (0.0-0.2) X10*3/uL Abs Immat Gran (auto) (0.00-0.03) X10*3/uL Absolute Neuts (auto) (2.0-8.3) x10*3/uL Absolute Nucleated RBC (0.0-0.012) X10*3/uL Nucleated RBC % (auto) (0.0-0.2) /100WBC Smear Tech's Comments D-Dimer High Sensitivty NG/ML VBG pH (7.32-7.43) VBG pCO2 mmHg VBG pO2 mmHg VBG HCO3 (22-26) mmol/L VBG O2 Saturation % VBG Base Excess mmol/L Sodium 138 (135-145) mmol/L Potassium 4.3 (3.3-5.1) mmol/L Chloride 106 (96-108) mmol/L Carbon Dioxide 10 L* (22-29) mmol/L Anion Gap 26 H (12-20) BUN 9 (9-16) mg/dL Creatinine 0.92 (0.5-1.4) mg/dL Estim Creat Clear Calc 77.9 Estimated GFR > 60 Random Glucose 79 (60-115) mg/dL Osmolality 302 (281-305) mosm/kg Calcium 10.8 H (8.4-10.2) mg/dL Magnesium (1.6-2.6) mg/dL Total Bilirubin (0.0-1.0) mg/dL AST (5-31) U/L ALT (0-31) U/L Alkaline Phosphatase (39-117) U/L Total Creatine Kinase (26-140) U/L Troponin I High Sens (<3.5-17.0) ng/L C-Reactive Protein (< or = 0.50) mg/dL B-Natriuretic Peptide (<100) pg/mL Total Protein (6.5-8.0) g/dL Albumin (3.5-5.0) g/dL Lipase (8-78) U/L Beta-Hydroxybutyrate 8.47 H (0.02-0.27) mmol/L Procalcitonin 0.03 ng/mL Beta HCG, Quant mIU/mL Urine Color Yellow Urine Appearance Cloudy Urine pH 5.5 (5.0-9.0) Ur Specific [place] 1.015 (1.005-1.025) Urine Protein 30 (1+) H (Neg-Trace) mg/dL Urine Glucose (UA) Negative (Negative) mg/dL Urine Ketones >=160 (Negative) mg/dL Urine Blood Negative (Negative) Urine Nitrite Negative (Negative) Ur Leukocyte Esterase Moderate (2+) H (Negative) Urine RBC 0-2 (0-2) /HPF Urine WBC 21-50 H (0-5) /HPF Ur Squamous Epith Cells 11-20 (0-2) /HPF Urine Bacteria 4+ (None Seen) Hyaline Casts 0-2 (0-2) /LPF Salicylates (15-30) mg/dL Urine Opiates Screen (Not Detect) Urine Fentanyl Screen (Not Detect) Ur Barbiturates Screen (Not Detect) Ur Phencyclidine Scrn (Not Detect) Ur Amphetamines Screen (Not Detect) U Benzodiazepines Scrn (Not Detect) Urine Cocaine Screen (Not Detect) U Marijuana (THC) Screen (Not Detect) Ethyl Alcohol mg/dL Influenza Type A (PCR) NEGATIVE (Negative) Influenza Type B (PCR) NEGATIVE (Negative) RSV RNA Qual (PCR) NEGATIVE (Negative) SARS-CoV-2 RNA (RT-PCR) NEGATIVE (Negative) 04/18/23 04/18/23 Range/Units 14:55 15:06 WBC (4.8-10.8) X10*3/uL RBC (4.20-5.50) X10*6/uL Hgb (12.0-16.0) g/dl Hct (37.0-47.0) % MCV (80.0-98.0) fL MCH (27.0-33.0) pg MCHC (31.0-35.0) g/dl RDW (11.0-16.0) % Plt Count (160-400) X10*3/uL MPV (9.4-12.3) fL Immature Gran % (Auto) (0.0-0.4) % Neut % (Auto) (45-73) % Lymph % (Auto) (20-40) % [place] % (Auto) (2-11) % Eos % (Auto) (0-4) % Baso % (Auto) (0-2) % Lymph # (Auto) (1.2-4.9) X10*3/uL [place] # (Auto) (0.1-1.2) X10*3/uL Eos # (Auto) (0.0-0.4) X10*3/uL Baso # (Auto) (0.0-0.2) X10*3/uL Abs Immat Gran (auto) (0.00-0.03) X10*3/uL Absolute Neuts (auto) (2.0-8.3) x10*3/uL Absolute Nucleated RBC (0.0-0.012) X10*3/uL Nucleated RBC % (auto) (0.0-0.2) /100WBC Smear Tech's Comments D-Dimer High Sensitivty NG/ML VBG pH (7.32-7.43) VBG pCO2 mmHg VBG pO2 mmHg VBG HCO3 (22-26) mmol/L VBG O2 Saturation % VBG Base Excess mmol/L Sodium (135-145) mmol/L Potassium (3.3-5.1) mmol/L Chloride (96-108) mmol/L Carbon Dioxide (22-29) mmol/L Anion Gap (12-20) BUN (9-16) mg/dL Creatinine (0.5-1.4) mg/dL Estim Creat Clear Calc Estimated GFR Random Glucose (60-115) mg/dL Osmolality (281-305) mosm/kg Calcium (8.4-10.2) mg/dL Magnesium (1.6-2.6) mg/dL Total Bilirubin (0.0-1.0) mg/dL AST (5-31) U/L ALT (0-31) U/L Alkaline Phosphatase (39-117) U/L Total Creatine Kinase (26-140) U/L Troponin I High Sens (<3.5-17.0) ng/L C-Reactive Protein (< or = 0.50) mg/dL B-Natriuretic Peptide (<100) pg/mL Total Protein (6.5-8.0) g/dL Albumin (3.5-5.0) g/dL Lipase (8-78) U/L Beta-Hydroxybutyrate (0.02-0.27) mmol/L Procalcitonin ng/mL Beta HCG, Quant mIU/mL Urine Color Urine Appearance Urine pH (5.0-9.0) Ur Specific [place] (1.005-1.025) Urine Protein (Neg-Trace) mg/dL Urine Glucose (UA) (Negative) mg/dL Urine Ketones (Negative) mg/dL Urine Blood (Negative) Urine Nitrite (Negative) Ur Leukocyte Esterase (Negative) Urine RBC (0-2) /HPF Urine WBC (0-5) /HPF Ur Squamous Epith Cells (0-2) /HPF Urine Bacteria (None Seen) Hyaline Casts (0-2) /LPF Salicylates < 5.0 L (15-30) mg/dL Urine Opiates Screen Not Detected (Not Detect) Urine Fentanyl Screen Not Detected (Not Detect) Ur Barbiturates Screen Not Detected (Not Detect) Ur Phencyclidine Scrn Not Detected (Not Detect) Ur Amphetamines Screen Not Detected (Not Detect) U Benzodiazepines Scrn POSITIVE H (Not Detect) Urine Cocaine Screen Not Detected (Not Detect) U Marijuana (THC) Screen Not Detected (Not Detect) Ethyl Alcohol mg/dL Influenza Type A (PCR) (Negative) Influenza Type B (PCR) (Negative) RSV RNA Qual (PCR) (Negative) SARS-CoV-2 RNA (RT-PCR) (Negative) Independent Interpretation I performed an independent interpretation of an: EKG Interpretation: EKG at 05/28/2007 shows sinus tachycardia at 142 beats per minute. There are diffuse T-wave changes. QTC 541. Critical Care Time Critical Care Time Critical Care Time: Yes Total Critical Care Time: 60 Attestation: The patient was critically ill with a high probability of imminent or life-threatening deterioration. ?I spent greater than 30 minutes of discontinuous time evaluating the patient, delivering critical care at the bedside, discussing evaluating data with consultants. ?Critical care time does not include time spent performing separately billable procedures or teaching. ?Time spent performing critical care with 60 minutes. Discharge Plan Discharge Clinical Impression: Alcoholic ketoacidosis, Tachycardia Patient Disposition: Admitted As Inpatient
[2023-04-18 09:27] LABS: Basophils Absolute Auto 0.1 X10*3/uL (0.0-0.2); Basophils Percent Auto 0.2 % (0-2); Eosinophils Absolute Auto 0.1 X10*3/uL (0.0-0.4); Eosinophils Percent Auto 0.2 % (0-4); Hematocrit 52.2 % (37.0-47.0); Imm Gran Abs Auto 0.44 X10*3/uL (0.00-0.03); Imm Gran Pct Auto 1.6 % (0.0-0.4); Lymphocytes Absolute Auto 1.6 X10*3/uL (1.2-4.9); Lymphocytes Percent Auto 5.7 % (20-40); MANUAL DIFF FLAG SCAN; Mean Corpuscular HGB Conc 34.1 g/dl (31.0-35.0); Mean Corpuscular Hemoglobin 34.2 pg (27.0-33.0); Mean Corpuscular Volume 100.2 fL (80.0-98.0); Mean Platelet Volume 11.6 fL (9.4-12.3); Monocytes Absolute Auto 1.4 X10*3/uL (0.1-1.2); Monocytes Percent Auto 5.1 % (2-11); Neutrophils Absolute Auto 24.5 x10*3/uL (2.0-8.3); Neutrophils Percent Auto 87.2 % (45-73); Platelet Count 508 X10*3/uL (160-400); Red Blood Count 5.21 X10*6/uL (4.20-5.50); Red Cell Distribution Width 12.5 % (11.0-16.0); SCAN SMEAR FLAG 1; White Blood Count 28.1 X10*3/uL (4.8-10.8)
[2023-04-18 09:28] LABS: Hemoglobin 17.8 g/dl (12.0-16.0)
[2023-04-18 09:47] LABS: SLIDE REVIEW VERIFIED
[2023-04-18 10:22] LABS: D Dimer High Sensitivity < 150 NG/ML
[2023-04-18 10:27] LABS: C Reactive Protein 1.14 mg/dL (< or = 0.50); Ethanol < 10 mg/dL; HCG Quantitative < 2 mIU/mL; Lipase 25 U/L (8-78)
[2023-04-18 10:28] LABS: Alanine Aminotransferase 26 U/L (0-31); Alkaline Phosphatase 125 U/L (39-117); Anion Gap 30 (12-20); Aspartate Amino Transferase 24 U/L (5-31); Bilirubin Total 0.9 mg/dL (0.0-1.0); Blood Urea Nitrogen 10 mg/dL (9-16); Calcium 11.2 mg/dL (8.4-10.2); Carbon Dioxide 11 mmol/L (22-29); Chloride 103 mmol/L (96-108); Creatinine Clr Calc Pharmacy 86.3; Estimated Glomerular Filt Rate > 60; Glucose Random 77 mg/dL (60-115); Potassium 4.6 mmol/L (3.3-5.1); Sodium 139 mmol/L (135-145); Total Protein 9.2 g/dL (6.5-8.0)
[2023-04-18 10:39] LABS: VBG Base Excess -11.9 mmol/L; VBG HCO3 10 mmol/L (22-26); VBG pCO2 19 mmHg; VBG pH 7.34 (7.32-7.43); VBG pO2 45 mmHg
[2023-04-18 10:42] LABS: Venous Blood Gas Refer to POC result
[2023-04-18] MEDS: 0.9 % Sodium Chloride 1,000 ML 999 ML IV ×2 (10:44→22:47)
[2023-04-18 10:53] LABS: Influenza A PCR NEGATIVE (Negative); Influenza B PCR NEGATIVE (Negative); Resp Syncy Virus RNA Qual PCR NEGATIVE (Negative); SARS COV2 PCR INHOUSE NEGATIVE (Negative)
[2023-04-18 11:16] LABS: B Type Natriuretic Peptide < 10 pg/mL (<100)
[2023-04-18 11:17] LABS: Troponin-I High Sensitivity < 2.7 ng/L (<3.5-17.0)
--- NOTE | 2023-04-18 11:17 | PC.NURSE ---
continues to cry in pain, stating that she cannot get comfortable in the bed d/t her leg pain. 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 provided with ice pack and pillow under her legs, continues to endorse pain. iv fluids infusing at this time.
[2023-04-18] MEDS: diazePAM 10 MG/2 ML CARTRIDGE 5 MG IVPUSH (11:48)
--- NOTE | 2023-04-18 12:28 | PC.NURSE ---
difficult IV stick, ultrasound at bedside attempting 2nd IV
[2023-04-18] MEDS: diazePAM 10 MG/2 ML CARTRIDGE IM (12:57)
[2023-04-18 14:04] LABS: Osmolality, Serum 302 mosm/kg (281-305)
[2023-04-18 14:12] LABS: Anion Gap 26 (12-20); Blood Urea Nitrogen 9 mg/dL (9-16); Calcium 10.8 mg/dL (8.4-10.2); Carbon Dioxide 10 mmol/L (22-29); Chloride 106 mmol/L (96-108); Creatinine Clr Calc Pharmacy 77.9; Estimated Glomerular Filt Rate > 60; Glucose Random 79 mg/dL (60-115); Potassium 4.3 mmol/L (3.3-5.1); Sodium 138 mmol/L (135-145)
[2023-04-18 14:25] LABS: Procalcitonin 0.03 ng/mL
--- NOTE | 2023-04-18 15:05 | PC.NURSE ---
able to gain IV access in patient's hand. received 1 liter of fluids, medicated per the MAR.
[2023-04-18 15:12] LABS: Beta-Hydroxybutyrate 8.47 mmol/L (0.02-0.27)
[2023-04-18 15:14] LABS: Appearance Urine Cloudy; Color Urine Yellow; Glucose Urine UA Negative (Negative); Leukocyte Esterase Urine Moderate (2+) (Negative); Nitrite Urine Negative (Negative); PH 5.5 (5.0-9.0); Specific Gravity - Urine 1.015 (1.005-1.025); UMIC TRIGGER UACC YES; Urine Blood Negative (Negative); Urine Ketones >=160 mg/dL (Negative); Urine Protein 30 (1+) mg/dL (Neg-Trace)
[2023-04-18 15:19] LABS: Bacteria Urine 4+ (None Seen); Hyaline Casts Urine 0-2 /LPF (0-2); RBC Urine 0-2 /HPF (0-2); UACC Culture Trigger YES; WBC Urine 21-50 /HPF (0-5)
[2023-04-18 15:27] LABS: Amphetamine Screen Urine Not Detected (Not Detect); Barbiturates, Urine Not Detected (Not Detect); Benzodiazepines Screen Urine POSITIVE (Not Detect); Cannabinoid Screen Urine Not Detected (Not Detect); Cocaine Screen Urine Not Detected (Not Detect); Fentanyl, urine Not Detected (Not Detect); Opiate Screen Urine Not Detected (Not Detect); Phencyclidine Screen Urine Not Detected (Not Detect)
[2023-04-18 15:31] LABS: Salicylate < 5.0 mg/dL (15-30)
--- NOTE | 2023-04-18 15:48 | P.HPHOSP_ITS ---
History of Present Illness Date of Service: 04/18/23 Chief Complaint: Nausea and vomiting A 27 years old lady with PMH of alcohol use disorder who presented to the hospital for nausea and vomiting three days after an injection of Vivitrol. It was her first time receiving the medications. soon after that she started feeling sick to her stomach and she started vomiting soon after that. could not tolerate any PO intake since then. No chest pain, palpitations, SOB, fever, chills, diarrhea or urinary symptoms. in ED she was found to have signs of dehydraion, ketoacidosis, anion-gap with mild Admitted for further evaluation and treatment. Review of Systems 2 Review of Systems: No fever, chills or weakness No chest pain, palpitation No shortness of breath or coughing No abdominal pain, but having nausea or vomiting No urinary symptoms No any rash or wounds PMFSH Medical History Ulcerative colitis Social History Household Members: Family Housing: House Do you presently have visiting nurse or other home services: No Alcohol intake: current Patient Tobacco Use Status: Never used Tobacco Use of substances other than those prescribed or required for medical reasons: Yes Substance Use Type: Marijuana Substance Use Frequency: Daily Last Used Substance: Days (ago) Currently Displaying Signs/Symptoms of Drug Intoxication Withdrawal: No Have you been hit, kicked, punched, or otherwise hurt by someone within the past year? If so, by whom?: No Do you feel safe in your current relationship?: Yes Is there a partner from a previous relationship who is making you feel unsafe now?: No Are you made to feel afraid or neglected: No Advance Directives: No Advance Directives Information Provided: No Do you have thoughts of harming others: None Do you have a plan to hurt others: No Plan Nutrition Risks: Acute nausea or vomiting x1 week Patient : No Meds Allergies Allergy/AdvReac Type Severity Reaction Status Date / Time aspirin [ASA] Allergy Unknown Verified 04/15/23 13:07 Active Medications: Current Medications Dextrose/Sodium Chloride (D5ns) 1,000 mls @ 500 mls/hr IVCONT .Q2H ONE Stop: 04/18/23 17:21 Home Medications Medication Instructions Recorded Confirmed Last Taken Type acetaminophen 500 mg tablet 1,000 mg PO Q8H PRN Migraine 04/18/23 04/18/23 04/17/23 History Headache hydroxyzine HCl 25 mg tablet 25 mg PO BID PRN itching/anxiety 04/18/23 04/18/23 Unknown History Physical Exam 2 Vital Signs and Narrative: Vital Signs: Last Vital Signs Temp 98.1 F 04/18/23 14:45 Pulse 136 H 04/18/23 14:45 Resp 18 04/18/23 14:45 BP 127/84 04/18/23 14:45 Pulse Ox 98 04/18/23 14:45 O2 Del Method Room Air 04/18/23 14:45 BMI result Body Mass Index 27.9 Const: Other: Constitutional : Awake, interactive, not in distress Neck : Normal inspection, Supple Cardiovascular : RRR, no JVP, no lower extremity edema Respiratory : good bilateral air entry, no crackles, wheezes or rhonchi Gastrointestinal: soft, lax, Normal bowel sounds, Non tender Skin : Warm, Dry Neurological : Alert & oriented x3, No focal deficit Results Labs 04/19/23 07:13 04/19/23 07:13 Labs: Laboratory Results - last 24 hr 04/18/23 04/18/23 04/18/23 09:16 09:52 09:54 MCV 100.2 H MCH 34.2 H MCHC 34.1 RDW 12.5 Plt Count 508 H MPV 11.6 Immature Gran % (Auto) 1.6 H Neut % (Auto) 87.2 H Lymph % (Auto) 5.7 L [place] % (Auto) 5.1 Eos % (Auto) 0.2 Baso % (Auto) 0.2 Lymph # (Auto) 1.6 [place] # (Auto) 1.4 H Eos # (Auto) 0.1 Baso # (Auto) 0.1 Abs Immat Gran (auto) 0.44 H Absolute Neuts (auto) 24.5 H Absolute Nucleated RBC 0.000 Nucleated RBC % (auto) 0.0 Smear Tech's Comments VERIFIED D-Dimer High Sensitivty < 150 VBG pH 7.34 VBG pCO2 19 VBG pO2 45 VBG HCO3 10 L VBG O2 Saturation 79.0 VBG Base Excess -11.9 Anion Gap 30 H Estim Creat Clear Calc 86.3 Estimated GFR > 60 Random Glucose 77 Osmolality Calcium 11.2 H D Magnesium 2.0 Total Bilirubin 0.9 AST 24 ALT 26 Alkaline Phosphatase 125 H Total Creatine Kinase 31 Troponin I High Sens < 2.7 C-Reactive Protein 1.14 H B-Natriuretic Peptide < 10 Total Protein 9.2 H Albumin 5.0 Lipase 25 Beta-Hydroxybutyrate Procalcitonin Beta HCG, Quant < 2 Urine Color Urine Appearance Urine pH Ur Specific [place] Urine Protein Urine Glucose (UA) Urine Ketones Urine Blood Urine Nitrite Ur Leukocyte Esterase Urine RBC Urine WBC Ur Squamous Epith Cells Urine Bacteria Hyaline Casts Salicylates Urine Opiates Screen Urine Fentanyl Screen Ur Barbiturates Screen Ur Phencyclidine Scrn Ur Amphetamines Screen U Benzodiazepines Scrn Urine Cocaine Screen U Marijuana (THC) Screen Ethyl Alcohol < 10 Influenza Type A (PCR) Influenza Type B (PCR) RSV RNA Qual (PCR) SARS-CoV-2 RNA (RT-PCR) 04/18/23 04/18/23 04/18/23 09:55 13:39 14:54 MCV MCH MCHC RDW Plt Count MPV Immature Gran % (Auto) Neut % (Auto) Lymph % (Auto) [place] % (Auto) Eos % (Auto) Baso % (Auto) Lymph # (Auto) [place] # (Auto) Eos # (Auto) Baso # (Auto) Abs Immat Gran (auto) Absolute Neuts (auto) Absolute Nucleated RBC Nucleated RBC % (auto) Smear Tech's Comments D-Dimer High Sensitivty VBG pH VBG pCO2 VBG pO2 VBG HCO3 VBG O2 Saturation VBG Base Excess Anion Gap 26 H Estim Creat Clear Calc 77.9 Estimated GFR > 60 Random Glucose 79 Osmolality 302 Calcium 10.8 H Magnesium Total Bilirubin AST ALT Alkaline Phosphatase Total Creatine Kinase Troponin I High Sens C-Reactive Protein B-Natriuretic Peptide Total Protein Albumin Lipase Beta-Hydroxybutyrate 8.47 H Procalcitonin 0.03 Beta HCG, Quant Urine Color Yellow Urine Appearance Cloudy Urine pH 5.5 Ur Specific [place] 1.015 Urine Protein 30 (1+) H Urine Glucose (UA) Negative Urine Ketones >=160 Urine Blood Negative Urine Nitrite Negative Ur Leukocyte Esterase Moderate (2+) H Urine RBC 0-2 Urine WBC 21-50 H Ur Squamous Epith Cells 11-20 Urine Bacteria 4+ Hyaline Casts 0-2 Salicylates Urine Opiates Screen Urine Fentanyl Screen Ur Barbiturates Screen Ur Phencyclidine Scrn Ur Amphetamines Screen U Benzodiazepines Scrn Urine Cocaine Screen U Marijuana (THC) Screen Ethyl Alcohol Influenza Type A (PCR) NEGATIVE Influenza Type B (PCR) NEGATIVE RSV RNA Qual (PCR) NEGATIVE SARS-CoV-2 RNA (RT-PCR) NEGATIVE 04/18/23 04/18/23 14:55 15:06 MCV MCH MCHC RDW Plt Count MPV Immature Gran % (Auto) Neut % (Auto) Lymph % (Auto) [place] % (Auto) Eos % (Auto) Baso % (Auto) Lymph # (Auto) [place] # (Auto) Eos # (Auto) Baso # (Auto) Abs Immat Gran (auto) Absolute Neuts (auto) Absolute Nucleated RBC Nucleated RBC % (auto) Smear Tech's Comments D-Dimer High Sensitivty VBG pH VBG pCO2 VBG pO2 VBG HCO3 VBG O2 Saturation VBG Base Excess Anion Gap Estim Creat Clear Calc Estimated GFR Random Glucose Osmolality Calcium Magnesium Total Bilirubin AST ALT Alkaline Phosphatase Total Creatine Kinase Troponin I High Sens C-Reactive Protein B-Natriuretic Peptide Total Protein Albumin Lipase Beta-Hydroxybutyrate Procalcitonin Beta HCG, Quant Urine Color Urine Appearance Urine pH Ur Specific [place] Urine Protein Urine Glucose (UA) Urine Ketones Urine Blood Urine Nitrite Ur Leukocyte Esterase Urine RBC Urine WBC Ur Squamous Epith Cells Urine Bacteria Hyaline Casts Salicylates < 5.0 L Urine Opiates Screen Not Detected Urine Fentanyl Screen Not Detected Ur Barbiturates Screen Not Detected Ur Phencyclidine Scrn Not Detected Ur Amphetamines Screen Not Detected U Benzodiazepines Scrn POSITIVE H Urine Cocaine Screen Not Detected U Marijuana (THC) Screen Not Detected Ethyl Alcohol Influenza Type A (PCR) Influenza Type B (PCR) RSV RNA Qual (PCR) SARS-CoV-2 RNA (RT-PCR) Imaging Radiologist's Impressions: Impressions Chest X-Ray 04/18/23 09:35 IMPRESSION: No acute abnormality. Assessment and Plan (1) High anion gap metabolic acidosis: Status: Acute (2) Intractable nausea and vomiting: Status: Acute (3) Hypercalcemia: Status: Acute Plan A 27 years old lady with PMH of alcohol use disorder who presented to the hospital for nausea and vomiting three days after an injection of Vivitrol. AGMA 2/2 Intractable nausea and vomiting to give IV boluses and maintenance consider sodium bicarb Hypercalcemia likely pseudo with abnormal albumin level Hx UC not in exacerbation monitor DVT PPx Lovenox The patient will likely need 2 overnight hospital stay for treatment of AGMA pending improvement in blood work and tolerance to diet. Quality Stroke Does the patient have a stroke diagnosis?: No VTE Prior VTE?: No VTE Risk Level:: Medical - low VTE Device Contraindication: Treatment Not Indicated VTE Drug Contraindication: N/A - Med Ordered
[2023-04-18] MEDS: Dextrose 5 % and 0.9 % NaCl 1,000 ML 500 ML IVCONT (15:52)
--- NOTE | 2023-04-18 16:06 | PHA.MEDREC ---
Pharmacy Consult ? Medication Reconciliation Pharmacy has completed the medication reconciliation. patient reported no longer taking gabapentin or naltrexone. Patient stated she got her vivtrol injection on friday. Tomeka Tao, EwaD
--- NOTE | 2023-04-18 16:14 | P.HPHOSP_ITS ---
[facility] Medical History Ulcerative colitis Social History (Updated 03/23/23 @ 11:43 by Winnie Marin DO) Alcohol intake: current Patient Tobacco Use Status: Current someday Tobacco user Substance Use Type: Marijuana Advance Directives: No Advance Directives Information Provided: No Meds Allergies Allergy/AdvReac Type Severity Reaction Status Date / Time aspirin [ASA] Allergy Unknown Verified 04/15/23 13:07 Active Medications: Current Medications Acetaminophen (Acetaminophen 325 Mg Tablet) 650 mg PO Q6H PRN PRN Reason: Pain, Mild (Pain Scale 1-3) Enoxaparin Sodium (Enoxaparin Sodium 40 Mg/0.4 Ml Syringe) 40 mg SUBCUT Q24H [facility] Dextrose/Sodium Chloride (D5ns) 1,000 mls @ 500 mls/hr IVCONT .Q2H ONE Stop: 04/18/23 17:21 Last Admin: 04/18/23 15:52 Dose: 500 mls/hr Dextrose/Sodium Chloride (D5ns) 1,000 mls @ 100 mls/hr IVCONT .Q10H [facility] Promethazine HCl 6.25 mg/ (Sodium Chloride) 50.25 mls @ 201 mls/hr IV ONCE ONE Stop: 04/18/23 16:10 Sodium Chloride (Ns) 1,000 mls @ 999 mls/hr IV .Q1H1M [facility] Stop: 04/18/23 17:15 Ondansetron HCl (Ondansetron Hcl 4 Mg/2 Ml Vial) 4 mg IVPUSH Q8H PRN PRN Reason: Nausea and Vomiting Sodium Chloride (0.9 % Sodium Chloride Flush 3 Ml Syringe) 3 ml IVFLUSH QSHIFT [facility] Home Medications Medication Instructions Recorded Confirmed Last Taken Type acetaminophen 500 mg tablet 1,000 mg PO Q8H PRN Migraine 04/18/23 04/18/23 04/17/23 History Headache hydroxyzine HCl 25 mg tablet 25 mg PO BID PRN itching/anxiety 04/18/23 04/18/23 Unknown History Physical Exam 2 Vital Signs and Narrative: Vital Signs: Last Vital Signs Temp 98.1 F 04/18/23 14:45 Pulse 136 H 04/18/23 14:45 Resp 18 04/18/23 14:45 BP 127/84 04/18/23 14:45 Pulse Ox 98 04/18/23 14:45 O2 Del Method Room Air 04/18/23 14:45 BMI result Body Mass Index 27.9 Results Labs 04/18/23 09:16 04/18/23 13:39 Labs: Laboratory Results - last 24 hr 04/18/23 04/18/23 04/18/23 09:16 09:52 09:54 MCV 100.2 H MCH 34.2 H MCHC 34.1 RDW 12.5 Plt Count 508 H MPV 11.6 Immature Gran % (Auto) 1.6 H Neut % (Auto) 87.2 H Lymph % (Auto) 5.7 L [place] % (Auto) 5.1 Eos % (Auto) 0.2 Baso % (Auto) 0.2 Lymph # (Auto) 1.6 [place] # (Auto) 1.4 H Eos # (Auto) 0.1 Baso # (Auto) 0.1 Abs Immat Gran (auto) 0.44 H Absolute Neuts (auto) 24.5 H Absolute Nucleated RBC 0.000 Nucleated RBC % (auto) 0.0 Smear Tech's Comments VERIFIED D-Dimer High Sensitivty < 150 VBG pH 7.34 VBG pCO2 19 VBG pO2 45 VBG HCO3 10 L VBG O2 Saturation 79.0 VBG Base Excess -11.9 Anion Gap 30 H Estim Creat Clear Calc 86.3 Estimated GFR > 60 Random Glucose 77 Osmolality Calcium 11.2 H D Magnesium 2.0 Total Bilirubin 0.9 AST 24 ALT 26 Alkaline Phosphatase 125 H Total Creatine Kinase 31 Troponin I High Sens < 2.7 C-Reactive Protein 1.14 H B-Natriuretic Peptide < 10 Total Protein 9.2 H Albumin 5.0 Lipase 25 Beta-Hydroxybutyrate Procalcitonin Beta HCG, Quant < 2 Urine Color Urine Appearance Urine pH Ur Specific [place] Urine Protein Urine Glucose (UA) Urine Ketones Urine Blood Urine Nitrite Ur Leukocyte Esterase Urine RBC Urine WBC Ur Squamous Epith Cells Urine Bacteria Hyaline Casts Salicylates Urine Opiates Screen Urine Fentanyl Screen Ur Barbiturates Screen Ur Phencyclidine Scrn Ur Amphetamines Screen U Benzodiazepines Scrn Urine Cocaine Screen U Marijuana (THC) Screen Ethyl Alcohol < 10 Influenza Type A (PCR) Influenza Type B (PCR) RSV RNA Qual (PCR) SARS-CoV-2 RNA (RT-PCR) 04/18/23 04/18/2324 09:55 13:39 14:54 MCV MCH MCHC RDW Plt Count MPV Immature Gran % (Auto) Neut % (Auto) Lymph % (Auto) [place] % (Auto) Eos % (Auto) Baso % (Auto) Lymph # (Auto) [place] # (Auto) Eos # (Auto) Baso # (Auto) Abs Immat Gran (auto) Absolute Neuts (auto) Absolute Nucleated RBC Nucleated RBC % (auto) Smear Tech's Comments D-Dimer High Sensitivty VBG pH VBG pCO2 VBG pO2 VBG HCO3 VBG O2 Saturation VBG Base Excess Anion Gap 26 H Estim Creat Clear Calc 77.9 Estimated GFR > 60 Random Glucose 79 Osmolality 302 Calcium 10.8 H Magnesium Total Bilirubin AST ALT Alkaline Phosphatase Total Creatine Kinase Troponin I High Sens C-Reactive Protein B-Natriuretic Peptide Total Protein Albumin Lipase Beta-Hydroxybutyrate 8.47 H Procalcitonin 0.03 Beta HCG, Quant Urine Color Yellow Urine Appearance Cloudy Urine pH 5.5 Ur Specific [place] 1.015 Urine Protein 30 (1+) H Urine Glucose (UA) Negative Urine Ketones >=160 Urine Blood Negative Urine Nitrite Negative Ur Leukocyte Esterase Moderate (2+) H Urine RBC 0-2 Urine WBC 21-50 H Ur Squamous Epith Cells 11-20 Urine Bacteria 4+ Hyaline Casts 0-2 Salicylates Urine Opiates Screen Urine Fentanyl Screen Ur Barbiturates Screen Ur Phencyclidine Scrn Ur Amphetamines Screen U Benzodiazepines Scrn Urine Cocaine Screen U Marijuana (THC) Screen Ethyl Alcohol Influenza Type A (PCR) NEGATIVE Influenza Type B (PCR) NEGATIVE RSV RNA Qual (PCR) NEGATIVE SARS-CoV-2 RNA (RT-PCR) NEGATIVE 04/18/23 04/18/23 14:55 15:06 MCV MCH MCHC RDW Plt Count MPV Immature Gran % (Auto) Neut % (Auto) Lymph % (Auto) [place] % (Auto) Eos % (Auto) Baso % (Auto) Lymph # (Auto) [place] # (Auto) Eos # (Auto) Baso # (Auto) Abs Immat Gran (auto) Absolute Neuts (auto) Absolute Nucleated RBC Nucleated RBC % (auto) Smear Tech's Comments D-Dimer High Sensitivty VBG pH VBG pCO2 VBG pO2 VBG HCO3 VBG O2 Saturation VBG Base Excess Anion Gap Estim Creat Clear Calc Estimated GFR Random Glucose Osmolality Calcium Magnesium Total Bilirubin AST ALT Alkaline Phosphatase Total Creatine Kinase Troponin I High Sens C-Reactive Protein B-Natriuretic Peptide Total Protein Albumin Lipase Beta-Hydroxybutyrate Procalcitonin Beta HCG, Quant Urine Color Urine Appearance Urine pH Ur Specific [place] Urine Protein Urine Glucose (UA) Urine Ketones Urine Blood Urine Nitrite Ur Leukocyte Esterase Urine RBC Urine WBC Ur Squamous Epith Cells Urine Bacteria Hyaline Casts Salicylates < 5.0 L Urine Opiates Screen Not Detected Urine Fentanyl Screen Not Detected Ur Barbiturates Screen Not Detected Ur Phencyclidine Scrn Not Detected Ur Amphetamines Screen Not Detected U Benzodiazepines Scrn POSITIVE H Urine Cocaine Screen Not Detected U Marijuana (THC) Screen Not Detected Ethyl Alcohol Influenza Type A (PCR) Influenza Type B (PCR) RSV RNA Qual (PCR) SARS-CoV-2 RNA (RT-PCR) Imaging Radiologist's Impressions: Impressions Chest X-Ray 04/18/23 09:35 IMPRESSION: No acute abnormality. Quality VTE VTE Risk Level:: Medical - low VTE Device Contraindication: Treatment Not Indicated VTE Drug Contraindication: N/A - Med Ordered
[2023-04-18] MEDS: Magnesium Hydrox/Alum Hydrox 30 ML ORAL.SUSP 60 ML PO (16:40)
[2023-04-18 16:58] LABS: Lactic Acid 1.6 mmol/L (0.5-2.0)
--- NOTE | 2023-04-18 17:29 | HE.PHANOTE ---
Phenobarbital for Alcohol withdrawal Per Dr. Mancia, patient to receive one IV loading dose of phenobarbital 10 mg/kg (IBW) instead of the loading dose being split into 3 IM doses by 3 hours. The max IV infusion rate is 50 mg/min. Patient will be monitor for cardiovascular side effects.
--- NOTE | 2023-04-18 18:28 | PC.NURSE ---
per hospitalist Dr Bennett, plan to hold phenobarb protocol d/t scoring a ciwa of 3. patient continues to state that she has not had alcohol for approx 1 month
[2023-04-18] MEDS: Dextrose 5 % and 0.9 % NaCl 1,000 ML 100 ML IVCONT (19:27)
--- NOTE | 2023-04-18 19:27 | PC.NURSE ---
assumed care of pt
[2023-04-18 19:34] LABS: Anion Gap 17 (12-20); Blood Urea Nitrogen 7 mg/dL (9-16); Calcium 9.3 mg/dL (8.4-10.2); Carbon Dioxide 12 mmol/L (22-29); Chloride 113 mmol/L (96-108); Creatinine Clr Calc Pharmacy 80.5; Estimated Glomerular Filt Rate > 60; Glucose Random 185 mg/dL (60-115); Sodium 138 mmol/L (135-145)
[2023-04-18] MEDS: Acetaminophen 325 MG TABLET 650 MG PO (21:07)
[2023-04-18] MEDS: hydrOXYzine HCL 25 MG TABLET PO (21:07)
[2023-04-18] MEDS: Amitriptyline HCl 50 MG TABLET PO (21:07)
[2023-04-18] MEDS: Metoprolol Tartrate 5 MG/5 ML VIAL 2.5 MG IVPUSH (22:57)
[2023-04-18 23:08] LABS: Lactic Acid 1.1 mmol/L (0.5-2.0)
[2023-04-19 03:50] VITALS: BP 138/85; PULSE 96; RESP 18; TEMP 36.6; O2SAT 96
[2023-04-19] MEDS: Dextrose 5 % and 0.9 % NaCl 1,000 ML 100 ML IVCONT ×3 (06:15→20:20)
[2023-04-19 07:07] VITALS: BP 135/88; PULSE 107; RESP 18; TEMP 36.2; O2SAT 99
[2023-04-19 07:41] LABS: Hematocrit 38.4 % (37.0-47.0); Hemoglobin 13.1 g/dl (12.0-16.0); Mean Corpuscular HGB Conc 34.1 g/dl (31.0-35.0); Mean Corpuscular Hemoglobin 34.4 pg (27.0-33.0); Mean Corpuscular Volume 100.8 fL (80.0-98.0); Mean Platelet Volume 11.8 fL (9.4-12.3); Platelet Count 429 X10*3/uL (160-400); Red Blood Count 3.81 X10*6/uL (4.20-5.50); Red Cell Distribution Width 12.4 % (11.0-16.0); White Blood Count 21.8 X10*3/uL (4.8-10.8)
[2023-04-19 08:02] LABS: Alanine Aminotransferase 20 U/L (0-31); Albumin Level 3.5 g/dL (3.5-5.0); Alkaline Phosphatase 93 U/L (39-117); Anion Gap 15 (12-20); Aspartate Amino Transferase 27 U/L (5-31); Bilirubin Total 0.8 mg/dL (0.0-1.0); Blood Urea Nitrogen 4 mg/dL (9-16); Calcium 8.7 mg/dL (8.4-10.2); Carbon Dioxide 16 mmol/L (22-29); Chloride 113 mmol/L (96-108); Creatinine Clr Calc Pharmacy 111.9; Estimated Glomerular Filt Rate > 60; Glucose Random 105 mg/dL (60-115); Potassium 3.5 mmol/L (3.3-5.1); Sodium 140 mmol/L (135-145); Total Protein 6.2 g/dL (6.5-8.0)
[2023-04-19] MEDS: 0.9 % Sodium Chloride Flush 3 ML SYRINGE IVFLUSH ×2 (08:05→20:16)
[2023-04-19] MEDS: cefTRIAXone sodium 1 GM in 0.9 % Sodium Chloride 50 ML IV (08:05)
[2023-04-19] MEDS: Folic Acid 1 MG TABLET PO (08:05)
[2023-04-19] MEDS: Thiamine HCL 100 MG TABLET PO (08:05)
[2023-04-19] MEDS: Magnesium Oxide 400 MG TABLET PO (08:05)
[2023-04-19] MEDS: Acetaminophen 325 MG TABLET 650 MG PO (08:05)
[2023-04-19] MEDS: Gabapentin 100 MG CAPSULE PO (10:14)
[2023-04-19 11:10] VITALS: BP 130/88; PULSE 100; RESP 18; TEMP 36.3; O2SAT 99
[2023-04-19] MEDS: Gabapentin 100 MG CAPSULE 200 MG PO (11:24)
[2023-04-19] MEDS: Famotidine 20 MG TABLET PO ×2 (11:24→20:16)
--- NOTE | 2023-04-19 11:25 | P.PNIM_ITS ---
Subjective Subjective Date of Service: 04/19/23 Interval History: Seen and evaluated this morning nausea improved reporting burning pain in her feet improved bicarb level Review of Systems Review of Systems: Yes all other systems are reviewed and are negative Physical Exam 2 Vital Signs: Vital Signs: Last Vital Signs Temp 97.3 F 04/19/23 11:10 Pulse 100 04/19/23 11:10 Resp 18 04/19/23 11:10 BP 130/88 04/19/23 11:10 Pulse Ox 99 04/19/23 11:10 O2 Del Method Room Air 04/19/23 11:10 BMI result Body Mass Index 27.9 Const: Other: Constitutional : Awake, interactive, not in distress Neck : Normal inspection, Supple Cardiovascular : RRR, no JVP, no lower extremity edema Respiratory : good bilateral air entry, no crackles, wheezes or rhonchi Gastrointestinal: soft, lax, Normal bowel sounds, Non tender Skin : Warm, Dry Neurological : Alert & oriented x3, No focal deficit Objective Data Active Medications Acetaminophen (Acetaminophen 325 Mg Tablet) 650 mg PO Q6H PRN PRN Reason: Pain, Mild (Pain Scale 1-3) Last Admin: 04/19/23 08:05 Dose: 650 mg Documented By: HIPOLITO Amitriptyline HCl (Amitriptyline Hcl 50 Mg Tablet) 50 mg PO BEDTIME [facility] Last Admin: 04/18/23 21:07 Dose: 50 mg Documented By: NOÉ Enoxaparin Sodium (Enoxaparin Sodium 40 Mg/0.4 Ml Syringe) 40 mg SUBCUT Q24H [facility] Last Admin: 04/18/23 19:28 Dose: Not Given Documented By: LORENA Non-Admin Reason: Patient Refused Famotidine (Famotidine 20 Mg Tablet) 20 mg PO BID [facility] Last Admin: 04/19/23 11:24 Dose: 20 mg Documented By: HIPOLITO Folic Acid (Folic Acid 1 Mg Tablet) 1 mg PO DAILY [facility] Last Admin: 04/19/23 08:05 Dose: 1 mg Documented By: HIPOLITO Gabapentin (Gabapentin 300 Mg Capsule) 300 mg PO BID [facility] Hydroxyzine HCl (Hydroxyzine Hcl 25 Mg Tablet) 25 mg PO BID PRN PRN Reason: itching/anxiety Last Admin: 04/18/23 21:07 Dose: 25 mg Documented By: NOÉ Dextrose/Sodium Chloride (D5ns) 1,000 mls @ 100 mls/hr IVCONT .Q10H [facility] Last Admin: 04/19/23 06:15 Dose: 100 mls/hr Documented By: NOÉ Ceftriaxone Sodium 1 gm/ (Sodium Chloride) 50 mls @ 100 mls/hr IV Q24H [facility] Last Infusion: 04/19/23 08:36 Dose: Infused Documented By: HIPOLITO Magnesium Oxide (Magnesium Oxide 400 Mg Tablet) 400 mg PO DAILY [facility] Last Admin: 04/19/23 08:05 Dose: 400 mg Documented By: HIPOLITO Ondansetron HCl (Ondansetron Hcl 4 Mg/2 Ml Vial) 4 mg IVPUSH Q8H PRN PRN Reason: Nausea and Vomiting Pharmacy Consult (Consult Rx Etoh Phenob Im/Po) 1 each MISCELLANE ONCE PRN; Protocol PRN Reason: Consult order Sodium Chloride (0.9 % Sodium Chloride Flush 3 Ml Syringe) 3 ml IVFLUSH QSHIFT [facility] Last Admin: 04/19/23 08:05 Dose: 3 ml Documented By: HIPOLITO Thiamine HCl (Thiamine Hcl 100 Mg Tablet) 100 mg PO DAILY [facility] Last Admin: 04/19/23 08:05 Dose: 100 mg Documented By: HIPOLITO Labs 04/19/23 07:13 04/19/23 07:13 Labs: Laboratory Results - last 24 hr 04/18/23 04/18/23 04/18/23 09:52 13:39 14:54 MCV MCH MCHC RDW Plt Count MPV Absolute Nucleated RBC Nucleated RBC % (auto) Hold Purple Top Anion Gap 26 H Estim Creat Clear Calc 77.9 Estimated GFR > 60 Random Glucose 79 Osmolality 302 Lactic Acid Calcium 10.8 H Total Bilirubin AST ALT Alkaline Phosphatase Total Creatine Kinase 31 Total Protein Albumin Beta-Hydroxybutyrate 8.47 H Procalcitonin 0.03 Hold Yellow Top Urine Color Yellow Urine Appearance Cloudy Urine pH 5.5 Ur Specific [place] 1.015 Urine Protein 30 (1+) H Urine Glucose (UA) Negative Urine Ketones >=160 Urine Blood Negative Urine Nitrite Negative Ur Leukocyte Esterase Moderate (2+) H Urine RBC 0-2 Urine WBC 21-50 H Ur Squamous Epith Cells 11-20 Urine Bacteria 4+ Hyaline Casts 0-2 Salicylates Urine Opiates Screen Urine Fentanyl Screen Ur Barbiturates Screen Ur Phencyclidine Scrn Ur Amphetamines Screen U Benzodiazepines Scrn Urine Cocaine Screen U Marijuana (THC) Screen 04/18/23 04/18/23 04/18/23 14:55 15:06 16:45 MCV MCH MCHC RDW Plt Count MPV Absolute Nucleated RBC Nucleated RBC % (auto) Hold Purple Top Anion Gap Estim Creat Clear Calc Estimated GFR Random Glucose Osmolality Lactic Acid 1.6 Calcium Total Bilirubin AST ALT Alkaline Phosphatase Total Creatine Kinase Total Protein Albumin Beta-Hydroxybutyrate Procalcitonin Hold Yellow Top Urine Color Urine Appearance Urine pH Ur Specific [place] Urine Protein Urine Glucose (UA) Urine Ketones Urine Blood Urine Nitrite Ur Leukocyte Esterase Urine RBC Urine WBC Ur Squamous Epith Cells Urine Bacteria Hyaline Casts Salicylates < 5.0 L Urine Opiates Screen Not Detected Urine Fentanyl Screen Not Detected Ur Barbiturates Screen Not Detected Ur Phencyclidine Scrn Not Detected Ur Amphetamines Screen Not Detected U Benzodiazepines Scrn POSITIVE H Urine Cocaine Screen Not Detected U Marijuana (THC) Screen Not Detected 04/18/23 04/18/23 04/19/23 19:09 22:45 07:13 MCV 100.8 H MCH 34.4 H MCHC 34.1 RDW 12.4 Plt Count 429 H MPV 11.8 Absolute Nucleated RBC 0.000 Nucleated RBC % (auto) 0.0 Hold Purple Top SEE NOTE Anion Gap 17 15 Estim Creat Clear Calc 80.5 111.9 Estimated GFR > 60 > 60 Random Glucose 185 H 105 Osmolality Lactic Acid 1.1 Calcium 9.3 D 8.7 D Total Bilirubin 0.8 AST 27 ALT 20 Alkaline Phosphatase 93 Total Creatine Kinase Total Protein 6.2 L Albumin 3.5 Beta-Hydroxybutyrate Procalcitonin Hold Yellow Top See Note Urine Color Urine Appearance Urine pH Ur Specific [place] Urine Protein Urine Glucose (UA) Urine Ketones Urine Blood Urine Nitrite Ur Leukocyte Esterase Urine RBC Urine WBC Ur Squamous Epith Cells Urine Bacteria Hyaline Casts Salicylates Urine Opiates Screen Urine Fentanyl Screen Ur Barbiturates Screen Ur Phencyclidine Scrn Ur Amphetamines Screen U Benzodiazepines Scrn Urine Cocaine Screen U Marijuana (THC) Screen Assessment and Plan (1) Hypercalcemia: Status: Acute (2) Intractable nausea and vomiting: Status: Acute (3) High anion gap metabolic acidosis: Status: Acute Plan A 27 years old lady with PMH of alcohol use disorder who presented to the hospital for nausea and vomiting three days after an injection of Vivitrol. AGMA 2/2 Intractable nausea and vomiting Improving continue IVF follow BMP start diet Hypercalcemia resolved Neuropathy in feet Gabapentin Hx UC not in exacerbation monitor DVT PPx Lovenox The patient will likely need overnight hospital stay for treatment of AGMA pending improvement in blood work and tolerance to diet. Quality Stroke Does the patient have a stroke diagnosis?: No VTE Prior VTE?: No VTE Risk Level:: Medical - low VTE Device Contraindication: Treatment Not Indicated VTE Drug Contraindication: N/A - Med Ordered
--- NOTE | 2023-04-19 11:59 | MHC.CM.PN ---
PT REPORTS SHE LIVES WITH HER PARENTS AND IS INDEPENDENT WITH CARE SHE HAS NO DME AND NO SERVICES PT DOES NOT HAVE A PCP OR HCP SHE IS NOT INTERESTED IN COMPLETING A HCP AT THIS TIME DCP: HOME NO SERVICES FAMILY TO TRANSPORT
[2023-04-19] MEDS: ondansetron HCL 4 MG/2 ML VIAL IVPUSH (14:52)
[2023-04-19 16:42] VITALS: BP 132/91; PULSE 94; RESP 18; TEMP 36.2; O2SAT 100
[2023-04-19] MEDS: Gabapentin 300 MG CAPSULE PO ×2 (17:00→20:16)
[2023-04-19 19:59] VITALS: BP 141/96; PULSE 92; RESP 16; TEMP 36.3; O2SAT 100
[2023-04-19] MEDS: Amitriptyline HCl 50 MG TABLET PO (20:17)
[2023-04-19 23:47] VITALS: BP 106/71; PULSE 91; RESP 16; TEMP 36.3; O2SAT 96
[2023-04-20 04:00] VITALS: BP 122/87; PULSE 83; RESP 16; TEMP 36.8; O2SAT 97
[2023-04-20] MEDS: Dextrose 5 % and 0.9 % NaCl 1,000 ML 100 ML IVCONT (06:03)
[2023-04-20 06:43] LABS: Anion Gap 11 (12-20); Blood Urea Nitrogen < 3 mg/dL (9-16); Calcium 8.3 mg/dL (8.4-10.2); Carbon Dioxide 23 mmol/L (22-29); Chloride 113 mmol/L (96-108); Creatinine Clr Calc Pharmacy 132.7; Estimated Glomerular Filt Rate > 60; Glucose Random 93 mg/dL (60-115); Sodium 144 mmol/L (135-145)
[2023-04-20 06:50] LABS: Potassium 2.9 mmol/L (3.3-5.1)
[2023-04-20 07:10] VITALS: BP 132/88; PULSE 89; RESP 18; TEMP 36.3; O2SAT 100
[2023-04-20] MEDS: cefTRIAXone sodium 1 GM in 0.9 % Sodium Chloride 50 ML IV (07:59)
[2023-04-20] MEDS: Folic Acid 1 MG TABLET PO (07:59)
[2023-04-20] MEDS: Thiamine HCL 100 MG TABLET PO (07:59)
[2023-04-20] MEDS: Famotidine 20 MG TABLET PO (07:59)
[2023-04-20] MEDS: Gabapentin 300 MG CAPSULE PO (07:59)
[2023-04-20] MEDS: Magnesium Oxide 400 MG TABLET PO (07:59)
[2023-04-20] MEDS: Potassium Chloride Packet 20 MEQ PACKET 40 MEQ PO ×2 (07:59→08:48)
[2023-04-20] MEDS: 0.9 % Sodium Chloride Flush 3 ML SYRINGE IVFLUSH (08:00)
--- NOTE | 2023-04-20 10:23 | PM.DS ---
DS: Providers Provider Date of Service: 04/20/23 Date of admission: 04/18/23 16:09 Primary care physician: None Physician DS: Diagnosis Discharge Diagnosis (1) Hypercalcemia: Status: Acute (2) Intractable nausea and vomiting: Status: Acute (3) High anion gap metabolic acidosis: Status: Acute (4) Tachycardia: Status: Acute DS: Summary Hospital Course Hospital Course: Admission note HPI A 27 years old lady with PMH of alcohol use disorder who presented to the hospital for nausea and vomiting three days after an injection of Vivitrol. It was her first time receiving the medications. soon after that she started feeling sick to her stomach and she started vomiting soon after that. could not tolerate any PO intake since then. No chest pain, palpitations, SOB, fever, chills, diarrhea or urinary symptoms. in ED she was found to have signs of dehydraion, ketoacidosis, anion-gap with mild Admitted for further evaluation and treatment. Hospital course The patient was admitted for treatment of Anion gap metabolic acidosis secondary to Intractable nausea and vomiting. Treated mainly with nausea medications and IV fluids with advancing her diet slowly over the course of hospital stay with good response as vomiting resolved and she was able to tolerate diet. believed to be a result of Naltrexone injection. Advised complete abstinence from alcohol and to discuss alternative treatment plan. She was noted to have Hypercalcemia which has resolved. On Gabapentin at home for neuropathy. Started on empirical Ceftriaxone for abnormal UA but her culture was negative so discontinued. Use Zofran as needed for nausea Famotidine daily for stomach protection Avoid drinking alcohol Discuss with PCP alternative for the injections Time Attestation Discharge coordination time: Greater than 30 minutes Quality: Safe Use of Opioids Does Pt have an Active Cancer Diagnosis on the Problem List?: No Quality: Stroke Does the patient have a stroke diagnosis?: No Physical Exam Vital Signs: Vital Signs: Last Vital Signs Temp 97.3 F 04/20/23 07:10 Pulse 89 04/20/23 07:10 Resp 18 04/20/23 07:10 BP 132/88 04/20/23 07:10 Pulse Ox 100 04/20/23 07:10 O2 Del Method Room Air 04/20/23 07:10 BMI result Body Mass Index 27.9 Const: Other: Constitutional : Awake, interactive, not in distress Neck : Normal inspection, Supple Cardiovascular : RRR, no JVP, no lower extremity edema Respiratory : good bilateral air entry, no crackles, wheezes or rhonchi Gastrointestinal: soft, lax, Normal bowel sounds, Non tender Skin : Warm, Dry Neurological : Alert & oriented x3, No focal deficit DS: Data Data Completed and Pending Labs on day of discharge: Laboratory Results - last 24 hr 04/20/23 05:58 Hold Purple Top SEE NOTE Sodium 144 Potassium 2.9 L* Chloride 113 H Carbon Dioxide 23 Anion Gap 11 L BUN < 3 L Creatinine 0.54 Estim Creat Clear Calc 132.7 Estimated GFR > 60 Random Glucose 93 Calcium 8.3 L Imaging Chest x-ray: Radiologist's impression: ITS Impressions Chest X-Ray 04/18/23 09:35 IMPRESSION: No acute abnormality. Discharge Plan Discharge Anticipated Discharge Date/Time: 04/20/23 10:15 Patient Disposition: Home, Self-Care Discharge Diagnosis: Intractable nausea and vomiting Referrals: Physician,None [Primary Care Provider] - 1 Week Discharge Medications: New famotidine 20 mg Tablet 20 mg PO DAILY Qty: 30 0RF ondansetron 4 mg tablet,disintegrating 4 mg PO Q8H PRN (Reason: nausea and vomiting) Qty: 14 0RF Continued folic acid 1 mg tablet 1 mg PO DAILY Qty: 30 1RF magnesium oxide 400 mg magnesium tablet 400 mg PO DAILY Qty: 30 1RF thiamine HCl (vitamin B1) 100 mg tablet 100 mg PO DAILY Qty: 30 1RF acetaminophen 500 mg Tablet 1,000 mg PO Q8H PRN (Reason: Migraine Headache) hydroxyzine HCl 25 mg tablet 25 mg PO BID PRN (Reason: itching/anxiety) amitriptyline 25 mg tablet 50 mg PO BEDTIME Qty: 14 0RF Discontinued Vivitrol 380 mg suspension,extended rel recon 380 mg IM Q4W Qty: 1 5RF Discharge Orders: Discharge Order (Routine); Ordered 04/20/23 Ordered By: Neville Scott Diet: Advance to usual diet Activity on Discharge: As tolerated Stand Alone Forms: Patient Portal Discharge page Care Plan Goals: Read below Health Concerns: Read below Plan of Treatment: Read below Assessment: Advance your diet slowly over the next week Use Zofran as needed for nausea Famotidine daily for stomach protection Avoid drinking alcohol Discuss with PCP alternative for the injections
--- NOTE | 2023-04-20 10:39 | MHC.CM.PN ---
PT WILL DC HOME TODAY WITH NO SERVICES FAMILY TO TRANSPORT
== END 2023-04-20 11:26 | disposition home or self-care (01) | DRG 249 ==
LOC: HO.ED 15:50 → HO.EDOVER 16:20 → HO.IMC 19:34
PROVIDERS: Internal Medicine; Admitting Provider Student in an Organized Health Care Education/Training Program; Emergency Provider Emergency Medicine; Visit Provider Student in an Organized Health Care Education/Training Program
DX: R11.2 Nausea with vomiting, unspecified (principal); E87.20 Acidosis, unspecified; E83.52 Hypercalcemia; T50.7X5A Adverse effect of analeptics and opioid receptor antagonists, initial encounter; F10.91 Alcohol use, unspecified, in remission; K51.90 Ulcerative colitis, unspecified, without complications; Z20.822 Contact with and (suspected) exposure to COVID-19; Z79.899 Other long term (current) drug therapy
CPT/HCPCS: 0241U; 36415; 71046; 80048; 80053; 80179; 80307; 81001; 82010; 82550; 82803; 83605; 83690; 83735; 83880; 83930; 84145; 84484; 84702; 85025; 85027; 85379; 86140; 87086; 93005; 99285; J0696; J2405; J2550; J3360

== ENCOUNTER → 2023-04-18 08:40 | Outpatient (BNV) | payer OTHER, SELFPAY | PROVIDERS: Emergency Provider Emergency Medicine; Visit Provider Internal Medicine Cardiovascular Disease | DX: R94.31 Abnormal electrocardiogram [ECG] [EKG] (principal) | CPT/HCPCS: 93010 ==

== ENCOUNTER → 2023-04-18 16:09 | Outpatient (BNV) | payer OTHER, SELFPAY | PROVIDERS: Admitting Provider Student in an Organized Health Care Education/Training Program; Emergency Provider Emergency Medicine; Visit Provider Student in an Organized Health Care Education/Training Program | DX: E83.52 Hypercalcemia (principal); R11.2 Nausea with vomiting, unspecified; E87.29 Other acidosis; R00.0 Tachycardia, unspecified | CPT/HCPCS: 99223; 99232; 99238 ==

== ENCOUNTER 2023-05-08 13:53 | Outpatient (AMB) | payer OTHER, SELFPAY ==
--- NOTE | 2023-05-08 13:55 | MHC.AM.SUB ---
Intake Vital Signs 05/08/23 14:00 BP 106/68 Blood Pressure Location Lt radial Position Sitting Pulse 84 Pulse Source Pulse Oximeter Pulse Oximetry (%) 96 Oxygen Delivery Method Room Air Intake Visit Reasons: MAT Intake Note: the patient presents for a mat visit [place] Tier Required: No Allergies aspirin [ASA] Allergy (Verified 05/08/23 14:01) Unknown Do you need a note to return to daycare/school/sports/work: No HPI MAT HPI Details Patient presents for MAT appointment Reports she had been hospitalized 2-3 weeks ago She presented to the ED approx 3-4 days after receiving her inj with vomiting, poor appetite, tachycardia She reports she felt better after receiving fluids She denies any additional reaction occurrences Additionally she is reporting a marked decrease in the neuropathy to her feet, reports she is no longer needing to take the gabapentin for pain and was able to put sneakers on for the first time in over a month [facility] Medical History Ulcerative colitis Social History Household Members: Family Housing: House Do you presently have visiting nurse or other home services: No Alcohol intake: current Patient Tobacco Use Status: Never used Tobacco Substance Use Type: Marijuana service: No Review of Systems Const Reports as per HPI Physical Exam Vital Signs: Last Vital Signs Pulse 84 05/08/23 14:00 BP 106/68 05/08/23 14:00 Pulse Ox 96 05/08/23 14:00 Oxygen Delivery Method Room Air 05/08/23 14:00 Const General: cooperative and healthy appearing Resp Effort & Inspection: normal respiratory effort Psych Appearance: grossly normal Mental Status: mental status grossly normal Speech and movement: Normal speech and movement present Affect: normal affect Attitude: cooperative Assessment & Plan Assessment & Plan (1) Alcohol use disorder, severe, dependence: Code(s): F10.20 - Alcohol dependence, uncomplicated Plan: -Discussed with her restarting the PO naltrexone x 2 weeks to assess for adverse reaction. She was able to tolerate the PO naltrexone prior to her vivitrol -Discussed with her to stop medication immediately if she experienced any adverse effects and seek higher level of care as appropriate -Follow up 2 weeks (2) Alcoholic peripheral neuropathy: Code(s): G62.1 - Alcoholic polyneuropathy Plan: -Reviewed with her to continue taking her thiamine and folic acid Coding Level of Care Code Est Pt Level 3 (12106) Diagnoses Alcohol use disorder, severe, dependence F10.20 Alcoholic peripheral neuropathy G62.1
[2023-05-08 14:00] VITALS: BP 106/68; PULSE 84; O2SAT 96
== END 2023-05-08 14:18 | disposition home or self-care (01) ==
PROVIDERS: Visit Provider Nurse Practitioner Family
DX: F10.20 Alcohol dependence, uncomplicated (principal); G62.1 Alcoholic polyneuropathy
CPT/HCPCS: 99213

== ENCOUNTER → 2023-05-08 13:53 | Outpatient (BNVA) | payer OTHER, SELFPAY | PROVIDERS: Visit Provider Nurse Practitioner Family | DX: F10.20 Alcohol dependence, uncomplicated (principal); G62.1 Alcoholic polyneuropathy | CPT/HCPCS: 99212 ==

== ENCOUNTER 2023-05-22 13:45 | Outpatient (AMB) | payer OTHER, SELFPAY ==
--- NOTE | 2023-05-22 13:47 | MHC.AM.SUB ---
Intake Vital Signs 05/22/23 13:54 BP 114/70 Blood Pressure Location Lt radial Position Sitting Pulse 84 Pulse Source Pulse Oximeter Pulse Oximetry (%) 99 Oxygen Delivery Method Room Air Intake Visit Reasons: MAT Intake Note: The patient presents for a mat visit Order Processing Specialist Required: No Allergies aspirin [ASA] Allergy (Verified 05/22/23 13:47) Unknown Do you need a note to return to daycare/school/sports/work: No HPI MAT HPI Details Patient presents for AUD treatment and follow up visit Reports she has maintained sobriety for 2 months now Has been taking naltrexone past 2 weeks with no concerns, was sick over the weekend with stomach virus, her child is also sick States she had a triggering episode with her father while she was ill- her father accused her of drinking again due to her illness She felt discouraged by this, was tempted to drink, but states she thought through how hard it was and all she had went through to quit in the first place and did not want to do that again T/w enforced with her what a healthy coping mechanism that was, encouragement offered She also reports she spent a weekend hanging out with friends who were drinking and she did not drink She would like to retry the vivitrol injection given she was able to tolerate PO naltrexone with no concerns for side effects PFSH Medical History Ulcerative colitis Social History Household Members: Family Housing: House Do you presently have visiting nurse or other home services: No Alcohol intake: current Patient Tobacco Use Status: Never used Tobacco Substance Use Type: Marijuana service: No Review of Systems Const Reports as per HPI Physical Exam Vital Signs: Last Vital Signs Pulse 84 05/22/23 13:54 BP 114/70 05/22/23 13:54 Pulse Ox 99 05/22/23 13:54 Oxygen Delivery Method Room Air 05/22/23 13:54 Const General: cooperative, healthy appearing and no acute distress Resp Effort & Inspection: normal respiratory effort Psych Appearance: grossly normal Mental Status: mental status grossly normal Speech and movement: Normal speech and movement present Affect: normal affect Attitude: cooperative Office Meds Vivitrol 380 mg intramuscular suspension,extended release Performing Provider: Alejandra E Moquin, BOAT OUTFITTER Performing Location: [facility] Administered by: Kelly Powell RN on 05/22/23 16:59 Dose Route Admin Location Dispensed Lot Number Expiration Date [employer] Security Analyst 380 mg IM RG 380 mg 2023-3026T 07/24/25 95721-105-30 [employer] Assessment & Plan Assessment & Plan (1) Alcohol use disorder, severe, dependence: Code(s): F10.20 - Alcohol dependence, uncomplicated Plan -Refills sent for thiamine and folic acid Orders: Orders AMB Naltrexone Injection Patient Supplied (NC) Today F10.20 - Alcohol dependence, uncomplicated Medications: Refilled folic acid 1 mg PO DAILY 30 tabs 3RF thiamine HCl (vitamin B1) 100 mg PO DAILY 30 tabs 3RF Coding Level of Care Code Est Pt Level 3 (04638) Diagnoses Alcohol use disorder, severe, dependence F10.20
[2023-05-22 13:54] VITALS: BP 114/70; PULSE 84; O2SAT 99
== END 2023-05-22 14:36 | disposition home or self-care (01) ==
PROVIDERS: Visit Provider Nurse Practitioner Family
DX: F10.20 Alcohol dependence, uncomplicated (principal)
CPT/HCPCS: 99213

== ENCOUNTER → 2023-05-22 13:45 | Outpatient (BNVA) | payer OTHER, SELFPAY | PROVIDERS: Visit Provider Nurse Practitioner Family | DX: F10.20 Alcohol dependence, uncomplicated (principal) | CPT/HCPCS: 96372; 99212; J2315 ==

== ENCOUNTER 2023-07-01 09:52 | Outpatient (AMB) | payer OTHER, SELFPAY ==
[2023-07-01 09:53] VITALS: BP 128/86; PULSE 115; O2SAT 100
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
== END 2023-07-01 10:24 | disposition home or self-care (01) ==
DX: F10.20 Alcohol dependence, uncomplicated (principal); Z32.02 Encounter for pregnancy test, result negative

== ENCOUNTER → 2023-07-01 09:52 | Outpatient (BNVA) | payer OTHER, SELFPAY | DX: F10.20 Alcohol dependence, uncomplicated (principal); Z32.02 Encounter for pregnancy test, result negative | CPT/HCPCS: 81025; 96372; J2315 ==

== ENCOUNTER 2023-08-07 09:19 | Outpatient (AMB) | payer OTHER, SELFPAY ==
[2023-08-07 09:24] VITALS: BP 100/70; PULSE 80; RESP 19; O2SAT 99
--- NOTE | 2023-08-07 09:24 | MHC.AM.SUB ---
Vital Signs 08/07/23 09:24 BP 100/70 Blood Pressure Location Rt brachial Position Sitting Respiration 19 Pulse 80 Pulse Source Pulse Oximeter Pulse Oximetry (%) 99 Intake Visit Reasons: MAT Visit/Donna Inj Allergies aspirin [ASA] Allergy (Verified 05/22/23 13:47) Unknown HPI HPI MAT Visit/Donna Inj: Details: Patient presents for monthly vivitrol injection Has been tolerating well States towards the end of the month when she is due for her next injection she begins to feel tired/nauseated, feels almost like hungover . Suggested to her that she take 1/2 tab of naltrexone daily for the week leading up to injection to see if it improves her symptoms. States she also has been having difficulty sleeping when it gets closer for her to have her injection- endorses anxiety as a driving factor behind her inability to fall asleep Has been attending online AA meetings 1-2x / week HPI Comments Details: Patient presents for MAT visit [facility] Medical History Ulcerative colitis Social History Household Members: Family Housing: House Do you presently have visiting nurse or other home services: No Alcohol intake: current Patient Tobacco Use Status: Never used Tobacco Substance Use Type: Marijuana service: No Review of Systems Const Reports as per HPI Physical Exam Vital Signs: Last Vital Signs Pulse 80 08/07/23 09:24 Resp 19 08/07/23 09:24 BP 100/70 08/07/23 09:24 Pulse Ox 99 08/07/23 09:24 Const General: cooperative and no acute distress Resp Effort & Inspection: normal respiratory effort and able to speak in complete sentences Psych Appearance: grossly normal Mental Status: mental status grossly normal Speech and movement: Normal speech and movement present Affect: normal affect Attitude: cooperative Thought process: Normal thought process present Office Meds Vivitrol 380 mg intramuscular suspension,extended release Performing Provider: Alejandra Richards NP Performing Location: [facility] Administered by: Kelly Powell RN on 08/07/23 09:42 Dose Route Admin Location Dispensed Lot Number Expiration Date [facility] Telephone Information Supervisor 380 mg IM RG 380 mg 2024-1007T 12/24/25 72242-706-92 [employer] Comments: Patient denies any complications with previous injection, agrees to call [facility] with any concerns with this injection. No noted signs or complications occured. Assessment & Plan Assessment & Plan (1) Alcohol use disorder, severe, dependence: Code(s): F10.20 - Alcohol dependence, uncomplicated Category: Medical Plan: -Clonidine rx for anxiety at night, med education provided, educated pt this medication affects blood pressure and to stop med for any allergic reaction, or signs and symptoms of dizziness/lightheadedness. Encouraged her to call [facility] with any concerns or questions -Follow up 4 weeks Orders: Orders Comprehensive Met. Panel Today F10.20 - Alcohol dependence, uncomplicated AMB Naltrexone Injection Patient Supplied (NC) Today F10.20 - Alcohol dependence, uncomplicated Complete Blood Count Auto Diff Today F10.20 - Alcohol dependence, uncomplicated Medications: New clonidine HCl 0.1 mg PO BEDTIME PRN 30 tabs 0RF anxiety
== END 2023-08-07 10:16 | disposition home or self-care (01) ==
PROVIDERS: Visit Provider Nurse Practitioner Family
DX: F10.20 Alcohol dependence, uncomplicated (principal)
CPT/HCPCS: 99213

== ENCOUNTER → 2023-08-07 09:19 | Outpatient (BNVA) | payer OTHER, SELFPAY | PROVIDERS: Visit Provider Nurse Practitioner Family | DX: F10.20 Alcohol dependence, uncomplicated (principal); Z79.899 Other long term (current) drug therapy | CPT/HCPCS: 96372; 99212; J2315 ==

== ENCOUNTER 2023-09-04 09:48 | Outpatient (AMB) | payer OTHER, SELFPAY ==
[2023-09-04 10:25] VITALS: BP 110/80; PULSE 79; O2SAT 99
--- NOTE | 2023-09-04 11:03 | AM.OFFVISNUR ---
Vital Signs 09/04/23 10:25 BP 110/80 Blood Pressure Location Lt brachial Position Sitting Pulse 79 Pulse Source Pulse Oximeter Pulse Oximetry (%) 99 Oxygen Delivery Method Room Air Intake Visit Reasons: Vivitrol Allergies aspirin [ASA] Allergy (Verified 05/22/23 13:47) Unknown Nursing Note Patient to clinic today for Vivitrol injection. Alert and oriented x4, denies any complications with previous injection, injection today given per orders in the LG. Will follow up in 4 weeks with RN. Patient states she feels great , states Im excited to think that maybe in 5 years I can have one glass of wine, and be ok , she acknowledged that she is not ready to try drinking anytime soon, and that she is on probation which along with the injection is another deterrent from drinking at this time. She states that she is hoping to be done with injections in 6 months , she will see Marie PERRY next visit to talk more about goals with stoping the injection. Office Meds Vivitrol 380 mg intramuscular suspension,extended release Performing Provider: Marie Riddle CNP Performing Location: [facility] Administered by: Kelly Powell RN on 09/04/23 10:27 Dose Route Admin Location Dispensed Lot Number Expiration Date [facility] Health Policy Manager 380 mg IM LG 380 mg 2024-1006T 12/24/25 49692-940-26 SEAT 4a Assessment & Plan Assessment & Plan Orders: Orders AMB Naltrexone Injection Patient Supplied (NC) 09/04/23 F10.20 - Alcohol dependence, uncomplicated Medications: New Vivitrol ER (naltrexone microspheres) 380 mg IM ONCE 1 ea 0RF NS F10.20 - Alcohol dependence, uncomplicated
== END 2023-09-04 10:25 | disposition home or self-care (01) ==
DX: F10.20 Alcohol dependence, uncomplicated (principal)

== ENCOUNTER → 2023-09-04 09:48 | Outpatient (BNVA) | payer OTHER, SELFPAY | DX: F10.20 Alcohol dependence, uncomplicated (principal); Z79.899 Other long term (current) drug therapy | CPT/HCPCS: 96372; J2315 ==

== ENCOUNTER 2023-10-03 09:54 | Outpatient (AMB) | payer OTHER, SELFPAY ==
--- NOTE | 2023-10-03 10:26 | AM.OFFVISNUR ---
Intake Visit Reasons: Vivitrol Injection Allergies aspirin [ASA] Allergy (Verified 05/22/23 13:47) Unknown Nursing Note Patient Presents for vivitrol Injection. Current Dose 380mg/vial . Given in the LG with no noted or stated complications Denies any issues with previous injection. Denies symptoms, and denies any break through cravings. Last appt with provider was in July , will follow up with RN in 4 weeks for injection. Will need to see provider for check in in october, please see note from August . Office Meds Vivitrol 380 mg intramuscular suspension,extended release Performing Provider: Marie Riddle CNP Performing Location: [facility] Administered by: Kelly Powell RN on 10/03/23 10:48 Dose Route Admin Location Dispensed Lot Number Expiration Date [facility] Threat Monitoring Analyst 380 mg IM LG 380 mg 2024-1010T 01/23/26 05753-858-46 [employer] Assessment & Plan Assessment & Plan Orders: Orders AMB Naltrexone Injection - Practice Supplied Today F10.20 - Alcohol dependence, uncomplicated Medications: New Vivitrol ER (naltrexone microspheres) 380 mg IM ONCE 1 ea 0RF NS F10.20 - Alcohol dependence, uncomplicated
== END 2023-10-03 10:19 | disposition home or self-care (01) ==
DX: F10.20 Alcohol dependence, uncomplicated (principal)

== ENCOUNTER → 2023-10-03 09:54 | Outpatient (BNVA) | payer OTHER, SELFPAY | DX: F10.20 Alcohol dependence, uncomplicated (principal) | CPT/HCPCS: 96372; J2315 ==

== ENCOUNTER 2023-11-03 09:55 | Outpatient (AMB) | payer OTHER, SELFPAY ==
[2023-11-03 10:38] VITALS: BP 110/78
--- NOTE | 2023-11-03 10:38 | A.OFFVISCC_ITS ---
Vital Signs 11/03/23 10:38 BP 110/78 Blood Pressure Location Rt brachial Position Sitting Intake Visit Reasons: MAT/Vivitrol Injection Allergies aspirin [ASA] Allergy (Verified 05/22/23 13:47) Unknown HPI HPI MAT/Vivitrol Injection: Details: Patient presents for follow up and vivitrol injection Reporting 7 month in recovery with a lapse in June Patient reporting depressive sx, irritability Has been working with a community provider assigned by [facility] on developing coping strategies Reviewed medications--patient is only taking Clonidine in addition to Vivitrol--medication list updated Expressing frustration due to not being able to find a job or enroll in school due to [facility] Medical History Ulcerative colitis Social History Household Members: Family Housing: House Do you presently have visiting nurse or other home services: No Alcohol intake: current Patient Tobacco Use Status: Never used Tobacco Substance Use Type: Marijuana service: No Review of Systems Const Reports as per HPI Physical Exam Vital Signs: Last Vital Signs BP 110/78 11/03/23 10:38 Const General: cooperative and well groomed Nutritional Appearance: average body habitus Orientation/consciousness: patient oriented x3 Limitations: no limitations Neuro General: patient oriented x3 Psych Speech and movement: Clear speech present Affect: normal affect Attitude: cooperative Thought process: Normal thought process present Thought content: Normal thought content present Insight: Fair insight present (Psych) Judgement: Good judgement present (Psych) Office Meds Vivitrol 380 mg intramuscular suspension,extended release Performing Provider: Marie Riddle CNP Performing Location: [facility] Administered by: Rebeca Mosqueda on 11/03/23 10:45 Dose Route Admin Location Dispensed Lot Number Expiration Date [facility] Throw Out Clerk 380 mg IM RG 380 mg [id number] 03/26/26 01028-192-86 [employer] Comments: Pt tolerated injection well. Educated on signs/symptoms of infection. Encouraged to call the office with questions or concerns. Assessment & Plan Assessment & Plan (1) Alcohol use disorder, severe, dependence: Code(s): F10.20 - Alcohol dependence, uncomplicated Category: Medical Plan: * tolerated injection * patient declined test as she states she has probation visit immediatley following this appt and has to provide a UDS for them. has not had a test since June 2024, must be obtained next visit and moving forward. She reports she took a test at home yesterday and reports it was negative * labs to be completed prior to next appt * prozac started to address mood Medications: New fluoxetine (Prozac) take one cap daily for 2 weeks then increase to 2 caps daily 10 mg PO DAILY 45 caps 0RF Refilled folic acid 1 mg PO DAILY 90 tabs 3RF thiamine HCl (vitamin B1) 100 mg PO DAILY 90 tabs 3RF Discontinued magnesium oxide Discontinued Reason: Patient no longer taking 400 mg PO DAILY 30 tabs 1RF famotidine Discontinued Reason: Patient no longer taking 20 mg PO DAILY 30 tabs 0RF amitriptyline Discontinued Reason: Patient no longer taking 50 mg (2 x 25 mg) PO BEDTIME 14 tabs 0RF ondansetron Discontinued Reason: Patient no longer taking 4 mg PO Q8H PRN 14 tabs 0RF nausea and vomiting
== END 2023-11-03 10:43 | disposition home or self-care (01) ==
PROVIDERS: Visit Provider Nurse Practitioner Psychiatric/Mental Health
DX: F10.20 Alcohol dependence, uncomplicated (principal)
CPT/HCPCS: 99214

== ENCOUNTER → 2023-11-03 09:55 | Outpatient (BNVA) | payer OTHER, SELFPAY | DX: F10.20 Alcohol dependence, uncomplicated (principal); Z51.81 Encounter for therapeutic drug level monitoring; Z79.899 Other long term (current) drug therapy | CPT/HCPCS: 96372; 99212; J2315 ==

== ENCOUNTER 2023-12-02 09:23 | Outpatient (REF) | payer OTHER, SELFPAY ==
[2023-12-02 09:46] LABS: MANUAL DIFF FLAG NO
[2023-12-02 10:13] LABS: Basophils Percent Auto 0.2 % (0-2); Eosinophils Absolute Auto 0.3 X10*3/uL (0.0-0.4); Eosinophils Percent Auto 1.7 % (0-4); Hematocrit 43.4 % (37.0-47.0); Hemoglobin 14.6 g/dl (12.0-16.0); Imm Gran Abs Auto 0.08 X10*3/uL (0.00-0.03); Imm Gran Pct Auto 0.5 % (0.0-0.4); Lymphocytes Absolute Auto 3.2 X10*3/uL (1.2-4.9); Lymphocytes Percent Auto 20.8 % (20-40); Mean Corpuscular HGB Conc 33.6 g/dl (31.0-35.0); Mean Corpuscular Hemoglobin 31.1 pg (27.0-33.0); Mean Corpuscular Volume 92.3 fL (80.0-98.0); Monocytes Absolute Auto 1.1 X10*3/uL (0.1-1.2); Monocytes Percent Auto 7.1 % (2-11); Neutrophils Absolute Auto 10.5 x10*3/uL (2.0-8.3); Neutrophils Percent Auto 69.7 % (45-73); Platelet Count 352 X10*3/uL (160-400); Red Cell Distribution Width 13.1 % (11.0-16.0); White Blood Count 15.1 X10*3/uL (4.8-10.8)
[2023-12-09 11:59] LABS: Vitamin B1 11 nmol/L (8-30)
== END 2023-12-02 09:24 | disposition home or self-care (01) ==
LOC: HO.LAB 09:23
PROVIDERS: Visit Provider Nurse Practitioner Psychiatric/Mental Health
DX: F10.20 Alcohol dependence, uncomplicated (principal)
CPT/HCPCS: 36415; 80053; 84425; 85025

== ENCOUNTER 2024-01-01 09:16 | Outpatient (AMB) | payer OTHER, SELFPAY ==
--- NOTE | 2024-01-01 09:27 | AM.OFFVISNUR ---
Intake Visit Reasons: Vivitrol Injection Allergies aspirin [ASA] Allergy (Verified 05/22/23 13:47) Unknown Nursing Note Patient Presents for vivitrol Injection. Current [id number] . Given in the with no noted or stated complication. Denies any issues with previous injection. Denies symptoms, and denies any break through cravings. Will follow up with RN in 4 weeks for injection. Will need to see provider for check in January . Office Meds Vivitrol 380 mg intramuscular suspension,extended release Performing Provider: Marie Riddle CNP Performing Location: [facility] Administered by: Kelly Powell RN on 01/01/24 09:27 Dose Route Admin Location Dispensed Lot Number Expiration Date [facility] Customer Service Representative Teacher 380 mg IM 380 mg 2024-1017T 03/26/26 02043-119-78 [place] Assessment & Plan Assessment & Plan Orders: Orders AMB Naltrexone Injection Patient Supplied (NC) Today G62.1 - Alcoholic polyneuropathy
== END 2024-01-01 10:58 | disposition home or self-care (01) ==
LOC: HO.HCC 09:17
DX: F10.20 Alcohol dependence, uncomplicated (principal); G62.1 Alcoholic polyneuropathy

== ENCOUNTER → 2024-01-01 09:16 | Outpatient (BNVA) | payer OTHER, SELFPAY | DX: F10.20 Alcohol dependence, uncomplicated (principal); G62.1 Alcoholic polyneuropathy | CPT/HCPCS: 96372; J2315 ==

== ENCOUNTER 2024-01-30 11:04 | Outpatient (AMB) | payer OTHER, SELFPAY ==
--- NOTE | 2024-01-30 11:15 | A.OFFVISCC_ITS ---
Intake Visit Reasons: MAT/Vivitrol Injection Allergies aspirin [ASA] Allergy (Verified 05/22/23 13:47) Unknown HPI HPI MAT/Vivitrol Injection: Details: Patient presents for AUD treatment follow up Found out last week that she is Believes she is currently 6 weeks Has been taking vitamins Was scheduled for Vivitrol injection today, but we will defer that for now Discussed patient's concerns related to risk of recurrence --she is more concerned with risk following the of the baby Encouraged patient to plan for that as the time gets closer Reviewed risk vs benefits with PO naltrexone Discussed social supports BF is supportive, and they are considering couples therapy 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 and hoping to get into [employer] program Review of Systems Const Reports as per HPI, Reports fatigue and Reports malaise GI Reports nausea Psych Reports no additional complaints Endo Reports fatigue Physical Exam Const General: cooperative, healthy appearing and well groomed Nutritional Appearance: average body habitus Orientation/consciousness: patient oriented x3 Limitations: no limitations Neuro General: patient oriented x3 Psych Speech and movement: Normal speech and movement present Affect: normal affect Attitude: cooperative Thought process: Normal thought process present Thought content: Normal thought content present Insight: Good insight present (Psych) Judgement: Good judgement present (Psych) Assessment & Plan Assessment & Plan (1) Alcohol use disorder, severe, dependence: Code(s): F10.20 - Alcohol dependence, uncomplicated Category: Medical Plan: * d/c vivitrol * oral naltrexone PRN (risks vs benefits reviewed with patient) * continue with recovery supports--including varsity baseball coach * follow up 4 weeks Medications: Discontinued naltrexone microspheres ER (Vivitrol) Discontinued Reason: Doctor's Order 380 mg IM Q4W 1 ea 12RF clonidine HCl Discontinued Reason: Doctor's Order 0.1 mg PO BEDTIME PRN 30 tabs 1RF for anxiety fluoxetine (Prozac) take one cap daily for 2 weeks then increase to 2 caps daily Discontinued Reason: Patient no longer taking 10 mg PO DAILY 45 caps 0RF PFSH Medical History Ulcerative colitis Social History Household Members: Family Housing: House Do you presently have visiting nurse or other home services: No Alcohol intake: current Patient Tobacco Use Status: Never used Tobacco Substance Use Type: Marijuana service: No
== END 2024-01-30 12:58 | disposition home or self-care (01) ==
PROVIDERS: Visit Provider Nurse Practitioner Psychiatric/Mental Health
DX: F10.20 Alcohol dependence, uncomplicated (principal)
CPT/HCPCS: 99214

== ENCOUNTER → 2024-01-30 11:04 | Outpatient (BNVA) | payer OTHER, SELFPAY | PROVIDERS: Visit Provider Nurse Practitioner Psychiatric/Mental Health | DX: F10.20 Alcohol dependence, uncomplicated (principal) | CPT/HCPCS: 99212 ==

== ENCOUNTER 2024-03-03 14:18 | Outpatient (AMB) | payer OTHER, SELFPAY ==
--- NOTE | 2024-03-03 14:31 | MHC.AM.SUB ---
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 started therapy--once per week Review of Systems Const Reports as per HPI and Reports no additional complaints Physical Exam Const General: cooperative, healthy appearing and well groomed Nutritional Appearance: average body habitus and well nourished Orientation/consciousness: patient oriented x3 Limitations: no limitations Neuro General: patient oriented x3 Psych Speech and movement: Clear speech present Affect: normal affect Attitude: cooperative Thought process: Normal thought process present Thought content: Normal thought content present Insight: Good insight present (Psych) Judgement: Good judgement present (Psych) Assessment & Plan Assessment & Plan (1) Alcohol use disorder, moderate, in sustained remission: Code(s): F10.21 - Alcohol dependence, in remission Category: Medical Plan: relapse prevention discussion continue with recovery supports [facility] Medical History (Updated 03/03/24 @ 14:40 by Marie Riddle CNP) Alcohol use disorder, severe, dependence Ulcerative colitis Social History Household Members: Family Housing: House Do you presently have visiting nurse or other home services: No Alcohol intake: current Patient Tobacco Use Status: Never used Tobacco Substance Use Type: Marijuana service: No
== END 2024-03-03 15:00 | disposition home or self-care (01) ==
PROVIDERS: Visit Provider Nurse Practitioner Psychiatric/Mental Health
DX: F10.21 Alcohol dependence, in remission (principal)
CPT/HCPCS: 99213

== ENCOUNTER → 2024-03-03 14:18 | Outpatient (BNVA) | payer OTHER, SELFPAY | PROVIDERS: Visit Provider Nurse Practitioner Psychiatric/Mental Health | DX: F10.21 Alcohol dependence, in remission (principal) | CPT/HCPCS: 99212 ==

== ENCOUNTER 2024-04-26 13:16 | Outpatient (AMB) | payer OTHER, SELFPAY ==
--- NOTE | 2024-04-26 14:11 | A.OFFVISCC_ITS ---
Intake Visit Reasons: MAT Office Allergies aspirin [ASA] Allergy (Verified 05/22/23 13:47) Unknown HPI HPI MAT Office: Details: Patient presents for follow up Found out she is having a boy--excited about this Reporting increasing anxiety and worry, asking about medications for this Encouraged patient to reach out to OB about this Still engaged with recovery supports Otherwise doing well, and no concerns for recovery Review of Systems Const Reports as per HPI and Reports difficulty sleeping (at times ) GI Reports nausea Psych Reports anxiety and Reports difficulty concentrating Physical Exam Const General: cooperative, healthy appearing and well groomed Nutritional Appearance: average body habitus and well nourished Orientation/consciousness: patient oriented x3 Limitations: no limitations Neuro General: patient oriented x3 Psych Speech and movement: Clear speech present Affect: normal affect Attitude: cooperative Thought process: Normal thought process present Thought content: Normal thought content present Insight: Good insight present (Psych) Judgement: Good judgement present (Psych) [facility] Medical History (Updated 03/03/24 @ 14:40 by Marie Riddle CNP) Alcohol use disorder, severe, dependence Ulcerative colitis Social History Household Members: Family Housing: House Do you presently have visiting nurse or other home services: No Alcohol intake: current Patient Tobacco Use Status: Never used Tobacco Substance Use Type: Marijuana service: No Assessment & Plan Assessment & Plan (1) Alcohol use disorder, moderate, in sustained remission: Code(s): F10.21 - Alcohol dependence, in remission Category: Medical Plan: * relapse prevention discussion * continue with recovery supports --encouraged to reach out to OB regarding anxiety sx
--- OUTSIDE RECORDS SUMMARY | 2024-04-26 15:30 | XMS_ITS | Clinical Summary ---
Author Organization [facility] Address [address] [place] [address] Care Team Providers Care Mechanical Product Engineer Name Role Phone Kelly Rodriguez MD Primary Care Provider Unavaila ble Encounters Date Type Department Care Team Description 02/23/2024 Telephone Gastroenterology - [address] [place] [address] Yosvany Cherry MD from Last 3 Months Social History Tobacco Use Types Packs/Day Years Used Date Smoking Tobacco: Never Assessed Comments Unknown Sex and Gender Information Value Date Recorded Sex Assigned at Not on file Legal Sex Female 3:43 AM EST Gender Identity Not on file Sexual Orientation Not on file Plan of Treatment Health Maintenance Due Date Last Done Comments Hepatitis A Vaccines (2 of 2 - 2-dose series) 06/23/2016 2015 Cervical Cancer Screening: Pap Smear 2017 Depression Screening 01/27/2022 HIV Screening 01/27/2022 Hepatitis C Screening 01/27/2022 Social Influencers of Health Screening 01/27/2022 COVID-19 Vaccine ( season) 2023 Influenza Vaccine (#1) 2023 2015 DTaP,Tdap,and Td Vaccines (10 - Td or Tdap) 12/29/2030 12/29/2020, 02/04/2019, 09/03/2016, Additional history exists HIB Vaccines Completed 03/06/1998, 06/24, 03/24/1997 IPV Vaccines Completed 06/19/2001, 02/24, 03/06/1998, Additional history exists Varicella Vaccines Completed 07/31/2009, 03/06/1998 HPV Vaccines Completed 12/06/2011, 06/24, 02/21/2011 Meningococcal ACWY Vaccine Completed 07/30/2013, Hepatitis B Vaccines Completed 08/14/2016, 07/12/1997, 01/25/1997, Additional history exists MMR Vaccines Completed 08/14/2016, 05/26, 03/06/1998 Meningococcal B Vacine Aged Out No lo nger eligible based on patient's age to complete this topic Pneumococcal Vaccine: Pediatrics (0 to 5 Years) and At-Risk Patients (6 to 64 Years) Aged Out No longer eligible based on patient's age to complete this topic RSV Immunization Patients Under 20 months Aged Out No longer eligible based on patient's age to complete this topic Care Teams Mechanical Product Engineer Relationship Specialty Start Date End Date Kelly Rodriguez MD PCP - General Pediatrics 07/23/17
== END 2024-04-26 14:26 | disposition home or self-care (01) ==
PROVIDERS: Visit Provider Nurse Practitioner Psychiatric/Mental Health
DX: F10.21 Alcohol dependence, in remission (principal)
CPT/HCPCS: 99213

== ENCOUNTER → 2024-04-26 13:16 | Outpatient (BNVA) | payer OTHER, SELFPAY | PROVIDERS: Visit Provider Nurse Practitioner Psychiatric/Mental Health | DX: F10.21 Alcohol dependence, in remission (principal) | CPT/HCPCS: 99212 ==

== ENCOUNTER 2024-05-26 16:18 | Outpatient (AMB) | payer OTHER, SELFPAY ==
--- NOTE | 2024-05-26 16:44 | MHC.OFFVIS ---
Vital Signs 05/26/24 16:54 Height 5 ft Weight 131 lb BMI 25.6 Pulse 70 Pulse Source Pulse Oximeter Pulse Oximetry (%) 99 Oxygen Delivery Method Room Air Intake Visit Reasons: MAT Office Allergies aspirin [ASA] Allergy (Verified 05/26/24 16:54) Unknown HPI HPI MAT Office: Details: She is and due early September/ She has anxiety and wondering what to take for it. She has used moly and alcohol and did well on Naltrexone. She has no other complaints today. Zoloft and Prozac gave her nausea. [facility] Medical History Alcohol use disorder, severe, dependence Ulcerative colitis Social History Household Members: Family Housing: House Do you presently have visiting nurse or other home services: No Alcohol intake: current Patient Tobacco Use Status: Never used Tobacco Substance Use Type: Marijuana service: No Review of Systems Const All systems reviewed & are unremarkable except as noted in HPI and below Physical Exam Vital Signs: Last Vital Signs Pulse 70 05/26/24 16:54 Pulse Ox 99 05/26/24 16:54 Oxygen Delivery Method Room Air 05/26/24 16:54 BMI result Body Mass Index 25.6 Const General: cooperative Results AMB 14 Panel Urine Drug Screen Urine Marijuana (THC) Positive Last Edit by Shiela Reese CMA on 05/26/24 16:58 Urine Cocaine Negative Last Edit by Shiela Reese CMA on 05/26/24 16:58 Urine Morphine Negative Last Edit by Shiela Reese CMA on 05/26/24 16:58 Urine Methamphetamine Negative Last Edit by Shiela Reese CMA on 05/26/24 16:58 Urine Amphetamine Negative Last Edit by Shiela Reese CMA on 05/26/24 16:58 Urine Benzodiazepine Negative Last Edit by Shiela Reese CMA on 05/26/24 16:58 Urine Barbiturates Negative Last Edit by Shiela Reese CMA on 05/26/24 16:58 Urine Methadone Negative Last Edit by Shiela Reese CMA on 05/26/24 16:58 Urine Buprenorphine Negative Last Edit by Shiela Reese CMA on 05/26/24 16:58 Urine Tricyclic Antidepressant Negative Last Edit by Shiela Reese CMA on 05/26/24 16:58 Urine MDMA Negative Last Edit by Shiela Reese CMA on 05/26/24 16:58 Urine Oxycodone Negative Last Edit by Shiela Reese CMA on 05/26/24 16:58 Urine Phencyclidine Negative Last Edit by Shiela Reese CMA on 05/26/24 16:58 Urine Propoxyphene Negative Last Edit by Shiela Reese CMA on 05/26/24 16:58 Results Reviewed Results Reviewed: Laboratory Last Values POC Urine Buprenorphine Negative 05/26/24 16:56 POC Urine Morphine Negative 05/26/24 16:56 POC Urine Oxycodone Negative 05/26/24 16:56 POC Urine Methadone Negative 05/26/24 16:56 POC Urine Propoxyphene Negative 05/26/24 16:56 POC Urine Barbiturates Negative 05/26/24 16:56 POC U Tricyclic Antidpr Negative 05/26/24 16:56 POC Urine PCP Negative 05/26/24 16:56 POC Ur Amphetamines Negative 05/26/24 16:56 POC Ur Methamphetamine Negative 05/26/24 16:56 POC Urine MDMA Negative 05/26/24 16:56 POC Ur Benzodiazepine Negative 05/26/24 16:56 POC Urine Cocaine Negative 05/26/24 16:56 POC Ur Marijuana (THC) Positive 05/26/24 16:56 Assessment & Plan Assessment & Plan (1) Alcohol use disorder, moderate, in sustained remission: Comment: She is doing well and not drinking or using moly Code(s): F10.21 - Alcohol dependence, in remission Category: Medical Plan: Continue observation and seeing therapist. Natural care of anxiey through breathing exercises hopefully through therapist as well as vitamin B6,eliza,other natural productsl See in two months. Orders: Orders AMB 14 Panel Urine Drug Screen Today F10.21 - Alcohol dependence, in remission Coding Level of Care Code Est Pt Level 3 (95655) Diagnoses Alcohol use disorder, moderate, in sustained remission F10.21
[2024-05-26 16:54] VITALS: PULSE 70; O2SAT 99; BMI 25.6
--- OUTSIDE RECORDS SUMMARY | 2024-05-26 18:04 | XMS_ITS | Clinical Summary ---
Author Organization [facility] Address [address] [place] [address] Care Team Providers Care Uniform Attendant Name Role Phone Kelly Rodriguez MD Primary Care Provider Mimi landin Social History Tobacco Use Types Packs/Day Years [...] age to complete this topic Care Teams Uniform Attendant Relationship Specialty Start Date End Date Kelly Rodriguez MD PCP - General Pediatrics 07/23/17
== END 2024-05-26 17:11 | disposition home or self-care (01) ==
LOC: HO.HCC 16:18
PROVIDERS: Visit Provider Internal Medicine
DX: F10.21 Alcohol dependence, in remission (principal)
CPT/HCPCS: 99213

== ENCOUNTER → 2024-05-26 16:18 | Outpatient (BNVA) | payer OTHER, SELFPAY | PROVIDERS: Visit Provider Internal Medicine | DX: F10.21 Alcohol dependence, in remission (principal) | CPT/HCPCS: 80307; 99212 ==

== ENCOUNTER 2024-07-12 14:16 | Outpatient (AMB) | payer OTHER, SELFPAY ==
--- OUTSIDE RECORDS SUMMARY | 2024-07-12 14:24 | XMS_ITS | Clinical Summary ---
Author Organization [facility] Address [address] [place] [address] Care Team Providers Care Weapons Officer Name Role Phone Kelly Rodriguez MD Primary [...] COVID-19 Vaccine ( season) 2023 Influenza Vaccine (Season Ended) 2024 2015 DTaP,Tdap,and Td Vaccines (10 - Td [...] Vaccines Completed 08/14/2016, 05/26, 03/06/1998 Meningococcal B Vaccine Aged Out No l onger eligible based on patient's age to complete this topic Pneumococcal Vaccine: Pediatrics (0 to 5 Years) and At-Risk Patients (6 to 64 Years) Aged Out No longer eligible based on patient's age to complete this topic RSV Immunization Patients Under 20 months Aged Out No longer eligible based on patient's age to complete this topic Care Teams Weapons Officer Relationship Specialty Start Date End Date Kelly Rodriguez MD PCP - General Pediatrics 07/23/17
--- NOTE | 2024-07-12 14:35 | MHC.OFFVIS ---
Intake Visit Reasons: MAT Allergies aspirin [ASA] Allergy (Verified 07/12/24 14:35) Unknown HPI Comments Details: She is and has some alcohol craving. She is going to get counseling. DCFS tells her to come every month. [facility] Medical History Alcohol use disorder, severe, dependence Ulcerative colitis Social History Household Members: Family Housing: House Do you presently have visiting nurse or other home services: No Alcohol intake: current Patient Tobacco Use Status: Never used Tobacco Substance Use Type: Marijuana service: No Review of Systems Const All systems reviewed & are unremarkable except as noted in HPI and below Physical Exam Const General: cooperative Assessment & Plan Assessment & Plan (1) Alcohol use disorder, moderate, in sustained remission: Comment: She is doing well and not drinking or using moly, but has cravings Code(s): F10.21 - Alcohol dependence, in remission Category: Medical Plan: She should do counseling. Would prefer not to give medication except folic acid and thiamine. Coding Level of Care Code Est Pt Level 3 (31755) Diagnoses Alcohol use disorder, moderate, in sustained remission F10.21
== END 2024-07-12 15:01 | disposition home or self-care (01) ==
PROVIDERS: Visit Provider Internal Medicine
DX: F10.21 Alcohol dependence, in remission (principal)
CPT/HCPCS: 99213

== ENCOUNTER → 2024-07-12 14:16 | Outpatient (BNVA) | payer OTHER, SELFPAY | PROVIDERS: Visit Provider Internal Medicine | DX: F10.21 Alcohol dependence, in remission (principal) | CPT/HCPCS: 99212 ==